=== PATIENT | female | born 1935 | race Caucasian/White ===

== ENCOUNTER 2016-07-05 07:06 | Observation (INO) | payer MEDICARE, BC ==
[2016-07-05] VITALS (14 sets, daily range): BP systolic 156–203; BP diastolic 65–88; PULSE 52–73; RESP 18–20; TEMP 97.7–98.7; O2SAT 95–98
[~2016-07-05 07:06] MED LIST: ALLO100T PO; ALPR0.25 PO; CALC0.5C6 PO; CALC500 PO; CALC500T30 PO; CART240C4 PO; CEFU1TAB43 PO; FURO20 PO; INDA1.25 PO; LACT PO; MAGN400 PO; MVI PO; VITA400D PO
--- NOTE | 2016-07-05 07:28 | PD ---
HPI Chief Complaint: Chest Pain Time Seen by Provider: 07:17 Travel History International Travel<30 days: No Contact w/Intl Traveler<30days: No Traveled to known affect area: No History of Present Illness HPI Patient is a 81-year-old female who presents to emergency room with complaints of chest pain. Patient reports that she woke up around 4 AM this morning with left-sided chest pain. Patient reports that she really can't describe her chest pain, reports that it just feels like "pain" in my chest. Patient reports that it feels like "funny feeling in her chest that just doesn't feel right." Patient reports that her chest pain had been ongoing since 4 AM and continued until arrival in the emergency room. Patient reports that chest pain did radiate to her left shoulder. Denies diaphoresis, nausea vomiting or palpitations or chest pain. Reports that she has not had these symptoms in the past. Denies history of IA or history of cardiac stent in the past. Patient currently chest pain-free at this time. Patient denies shortness of breath. Patient does admit to lifting heavy objects yesterday, including boxes and a heavy rug, reports that her pain is not reproducible at this time. Patient reports that hyperventilating makes her symptoms worse, reports that if she doesn't think her chest pain, this makes her symptoms feel better. Patient did take a baby aspirin prior to coming to the emergency room today. PFSH Past Medical History Arthritis: Yes (knees and hips) Asthma: No Blood Disorders: No Anxiety: Yes Depression: No Heart Rhythm Problems: No Cancer: No Cardiovascular Problems: Yes High Cholesterol: No Chest Pain: No Congestive Heart Failure: No COPD: No Cerebrovascular Accident: No Diminished Hearing: No Gastrointestinal Disorders: No GERD: Yes (OCCASIONAL) Genitourinary: No Headaches: No Hiatal Hernia: No Hypertension: Yes (TAKES BP MEDS) Immune Disorder: No Implanted Vascular Access Dvce: No Musculoskeletal: Yes Neurologic: No Psychiatric: No Reproductive: No Respiratory: No Migraines: No Seizures: No Sleep Apnea: No Thyroid Disease: Yes (HYPERPARATHYROIDISM) Ulcer: No Influenza Vaccination: No ?: Not Menopausal: Yes Past Surgical History Abdominal Surgery: No Cardiac Surgery: No Ear Surgery: No Endocrine Surgery: Yes (PARATHYROID SURGERY 1999) Eye Surgery: No Genitourinary Surgery: No Gynecologic Surgery: Yes (TUBAL, HYSTERECTOMY) Hysterectomy: Yes Neurologic Surgery: No Oral Surgery: Yes (tonsillectomy) Pacemaker: No Thoracic Surgery: No Tonsillectomy: Yes (childhood) Family History Family History: Negative Social History Alcohol Use: No Tobacco Use: No Substance Use: No Allergies-Medications (Allergen,Severity, Reaction): Coded Allergies: Codeine (Verified Allergy, Severe, "CRAZY", 07/05/16) Procaine (Verified Allergy, Severe, NAUSEA, 07/05/16) Reported Meds & Prescriptions Reported Meds & Active Scripts Active Reported Aspir-Low (Aspirin) 81 Mg Tabdr 81 Mg PO DAILY Vitamin D (Cholecalciferol) 400 Unit Cap 400 Mg PO DAILY Magnesium Oxide 400 Mg Tab 400 Mg PO DAILY Indapamide 1.25 Mg Tab 1.25 Mg PO DAILY Lasix (Furosemide) 20 Mg Tab 20 Mg PO DAILY Cartia Xt (Diltiazem ER 24 HR) 240 Mg Caper 240 Mg PO HS Calcium 500 Mg Tab 500 Mg PO BID Calcitriol 0.5 Mcg Cap 0.5 Mcg PO DAILY Alprazolam 0.25 Mg Tab 0.25 Mg PO HS PRN Allopurinol 100 Mg Tab 100 Mg PO BID Review of Systems General / Constitutional: No: Fever Eyes: No: Visual changes HENT: No: Headaches Cardiovascular: Positive: Chest Pain or Discomfort Respiratory: No: Shortness of Breath Gastrointestinal: No: Abdominal Pain Genitourinary: No: Dysuria Musculoskeletal: No: Pain Skin: No Rash Neurologic: No: Weakness Psychiatric: No: Depression Endocrine: No: Polydipsia Hematologic/Lymphatic: No: Easy Bruising Physical Exam Narrative GENERAL: No acute distress, nontoxic SKIN: Warm and dry. HEAD: Atraumatic. Normocephalic. EYES: Pupils equal and round. No scleral icterus. No injection or drainage. ENT: No nasal bleeding or discharge. Mucous membranes pink and moist. NECK: Trachea midline. No JVD. CARDIOVASCULAR: Regular rate and rhythm. No murmur appreciated. RESPIRATORY: No accessory muscle use. Clear to auscultation. Breath sounds equal bilaterally. GASTROINTESTINAL: Abdomen soft, non-tender, nondistended. Hepatic and splenic margins not palpable. MUSCULOSKELETAL: No obvious deformities. No clubbing. No cyanosis. No edema. NEUROLOGICAL: Awake and alert. No obvious cranial nerve deficits. Motor grossly within normal limits. Normal speech. PSYCHIATRIC: Appropriate mood and affect; insight and judgment normal. Data Data Last Documented VS Vital Signs Date Time Temp Pulse Resp B/P Pulse Ox O2 Delivery O2 Flow Rate FiO2 07/05/16 07:46 52 18 170/72 95 Room Air 07/05/16 07:14 97.7 Orders B-Type Natriuretic Peptide (07/05/16 07:22) Ckmb (Isoenzyme) Profile (07/05/16 07:22) Complete Blood Count With Diff (07/05/16 07:22) Comprehensive Metabolic Panel (07/05/16 07:22) Prothrombin Time / Inr (Pt) (07/05/16 07:22) Act Partial Throm Time (Ptt) (07/05/16 07:22) Troponin I (07/05/16 07:22) Chest, Single Ap (07/05/16 07:22) Ecg Monitoring (07/05/16 07:22) Iv Access Insert/Monitor (07/05/16 07:22) Oximetry (07/05/16 07:22) Nitroglycerin 2% Oint (Nitroglycerin 2% (07/05/16 07:30) Sodium Chloride 0.9% Flush (Ns Flush) (07/05/16 07:30) Labs Laboratory Tests Test 07/05/16 07:15 White Blood Count 7.5 TH/MM3 Red Blood Count 4.05 MIL/MM3 Hemoglobin 12.9 GM/DL Hematocrit 37.5 % Mean Corpuscular Volume 92.5 FL Mean Corpuscular Hemoglobin 31.8 PG Mean Corpuscular Hemoglobin 34.4 % Concent Red Cell Distribution Width 12.8 % Platelet Count 214 TH/MM3 Mean Platelet Volume 8.4 FL Neutrophils (%) (Auto) 77.2 % Lymphocytes (%) (Auto) 17.2 % Monocytes (%) (Auto) 3.5 % Eosinophils (%) (Auto) 1.5 % Basophils (%) (Auto) 0.6 % Neutrophils # (Auto) 5.8 TH/MM3 Lymphocytes # (Auto) 1.3 TH/MM3 Monocytes # (Auto) 0.3 TH/MM3 Eosinophils # (Auto) 0.1 TH/MM3 Basophils # (Auto) 0.0 TH/MM3 CBC Comment DIFF FINAL Differential Comment Prothrombin Time 10.7 SEC Prothromb Time International 1.0 RATIO Ratio Activated Partial 24.7 SEC Thromboplast Time Sodium Level 141 MEQ/L Potassium Level 3.7 MEQ/L Chloride Level 102 MEQ/L Carbon Dioxide Level 28.3 MEQ/L Anion Gap 11 MEQ/L Blood Urea Nitrogen 29 MG/DL Creatinine 1.90 MG/DL Estimat Glomerular Filtration 25 ML/MIN Rate Random Glucose 158 MG/DL Calcium Level 11.3 MG/DL Total Bilirubin 0.5 MG/DL Aspartate Amino Transf 17 U/L (AST/SGOT) Alanine Aminotransferase 29 U/L (ALT/SGPT) Alkaline Phosphatase 120 U/L Total Creatine Kinase 74 U/L Troponin I LESS THAN 0.02 NG/ML B-Type Natriuretic Peptide 26 PG/ML Total Protein 7.6 GM/DL Albumin 4.0 GM/DL [facility] Medical Decision Making Medical Screen Exam Complete: Yes Emergency Medical Condition: Yes Interpretation(s) EKG at 0704: Normal sinus rhythm at 63 bpm, QT/QTc 438/443, nonspecific T-wave changes Vital Signs Date Time Temp Pulse Resp B/P Pulse Ox O2 Delivery O2 Flow Rate FiO2 07/05/16 07:19 64 18 07/05/16 07:14 97.7 64 20 199/83 96 Laboratory Tests Test 07/05/16 07:15 White Blood Count 7.5 TH/MM3 (4.0-11.0) Red Blood Count 4.05 MIL/MM3 (4.00-5.30) Hemoglobin 12.9 GM/DL (11.6-15.3) Hematocrit 37.5 % (35.0-46.0) Mean Corpuscular Volume 92.5 FL (80.0-100.0) Mean Corpuscular Hemoglobin 31.8 PG (27.0-34.0) Mean Corpuscular Hemoglobin 34.4 % Concent (32.0-36.0) Red Cell Distribution Width 12.8 % (11.6-17.2) Platelet Count 214 TH/MM3 (150-450) Mean Platelet Volume 8.4 FL (7.0-11.0) Neutrophils (%) (Auto) 77.2 % (16.0-70.0) Lymphocytes (%) (Auto) 17.2 % (9.0-44.0) Monocytes (%) (Auto) 3.5 % (0.0-8.0) Eosinophils (%) (Auto) 1.5 % (0.0-4.0) Basophils (%) (Auto) 0.6 % (0.0-2.0) Neutrophils # (Auto) 5.8 TH/MM3 (1.8-7.7) Lymphocytes # (Auto) 1.3 TH/MM3 (1.0-4.8) Monocytes # (Auto) 0.3 TH/MM3 (0-0.9) Eosinophils # (Auto) 0.1 TH/MM3 (0-0.4) Basophils # (Auto) 0.0 TH/MM3 (0-0.2) CBC Comment DIFF FINAL Differential Comment Prothrombin Time 10.7 SEC (9.8-11.6) Prothromb Time International 1.0 RATIO Ratio Activated Partial 24.7 SEC Thromboplast Time (24.3-30.1) Sodium Level 141 MEQ/L (136-145) Potassium Level 3.7 MEQ/L (3.5-5.1) Chloride Level 102 MEQ/L (98-107) Carbon Dioxide Level 28.3 MEQ/L (21.0-32.0) Anion Gap 11 MEQ/L (5-15) Blood Urea Nitrogen 29 MG/DL (7-18) Creatinine 1.90 MG/DL (0.50-1.00) Estimat Glomerular Filtration 25 ML/MIN (>89) Rate Random Glucose 158 MG/DL (74-106) Calcium Level 11.3 MG/DL (8.5-10.1) Total Bilirubin 0.5 MG/DL (0.2-1.0) Aspartate Amino Transf 17 U/L (15-37) (AST/SGOT) Alanine Aminotransferase 29 U/L (10-53) (ALT/SGPT) Alkaline Phosphatase 120 U/L (45-117) Total Creatine Kinase 74 U/L (26-192) Troponin I LESS THAN 0.02 NG/ML (0.02-0.05) B-Type Natriuretic Peptide 26 PG/ML (0-100) Total Protein 7.6 GM/DL (6.4-8.2) Albumin 4.0 GM/DL (3.4-5.0) Differential Diagnosis ACS, electrolyte abnormality, arrhythmia, musculoskeletal chest pain, pneumothorax, pneumonia Narrative Course Patient is an 81-year-old female who presents to emergency room with complaints of chest pain. Patient with onset of chest pain and one 4 AM this morning. Patient reports that she has complete relief of chest pain at this time. Patient was placed on quality assurance monitor body as well as continuous pulse oximetry upon arrival to ER. EKG obtained, patient and normal sinus rhythm with no acute ST segment changes X-ray, CBC, BMP, cardiac enzymes ordered for further evaluation symptoms. Will Apply Nitropaste at this time as patient is chest pain-free. Reviewed labs and studies with patient in detail. Discussed with patient that symptoms may be musculoskeletal in nature as she does have reproducible left arm pain, chest pain is not reproducible. Discussed with her need for obs for chest pain rule out, patient agreeable Physician Communication Physician Communication case reviewed with dr randall who accepts pt to cdu Diagnosis Primary Impression: Chest pain Qualified Code: R07.9 - Chest pain, unspecified type Admitting Information Admitting Physician Requests: Bonny Philip DO Jul 05, 2016 07:28
[2016-07-05] MEDS ORDERED: NITROGLYCERIN 2% OINT 1 GM PACKET TOP ONE (07:30)
[2016-07-05] MEDS ORDERED: SODIUM CHLORIDE 0.9% FLUSH 5 ML FLUSH IVF PRN ×2 (07:30→09:15)
[2016-07-05 07:34] LABS: AUTOMATED NEUTROPHIL # 5.8 TH/MM3 (1.8-7.7); BASOPHIL % 0.6 % (0.0-2.0); EOSINOPHIL # 0.1 TH/MM3 (0-0.4); EOSINOPHIL % 1.5 % (0.0-4.0); HEMATOCRIT 37.5 % (35.0-46.0); LYMPH % 17.2 % (9.0-44.0); LYMPHOCYTE # 1.3 TH/MM3 (1.0-4.8); MEAN CELL VOLUME 92.5 FL (80.0-100.0); MEAN CORPUSCULAR HEMOGLOBIN 31.8 PG (27.0-34.0); MEAN CORPUSCULAR HGB CONC 34.4 % (32.0-36.0); MONO % 3.5 % (0.0-8.0); NEUT % 77.2 % (16.0-70.0); PLATELET COUNT 214 TH/MM3 (150-450); RED BLOOD COUNT 4.05 MIL/MM3 (4.00-5.30); RED CELL DISTRIBUTION WIDTH 12.8 % (11.6-17.2); WHITE BLOOD COUNT 7.5 TH/MM3 (4.0-11.0)
[2016-07-05 07:36] LABS: HEMO FLAGS DIFF FINAL
[2016-07-05 07:43] LABS: CHLORIDE 102 MEQ/L (98-107); POTASSIUM 3.7 MEQ/L (3.5-5.1); SODIUM (NA) 141 MEQ/L (136-145)
[2016-07-05 07:46] LABS: ANION GAP 11 MEQ/L (5-15); BICARBONATE 28.3 MEQ/L (21.0-32.0)
[2016-07-05 07:47] LABS: APTT (PATIENT) 24.7 SEC (24.3-30.1); BLOOD UREA NITROGEN 29 MG/DL (7-18); PROTHROMBIN TIME - PATIENT 10.7 SEC (9.8-11.6)
[2016-07-05 07:50] LABS: ALT (GPT) 29 U/L (10-53); AST (GOT) 17 U/L (15-37); GLOMERULAR FILTRATION RATE 25 ML/MIN (>89)
[2016-07-05 07:51] LABS: TOTAL BILIRUBIN ADULT 0.5 MG/DL (0.2-1.0)
[2016-07-05 07:52] LABS: ALKALINE PHOSPHATASE 120 U/L (45-117)
[2016-07-05] MEDS ORDERED: ALLO100T PO (07:54)
[2016-07-05] MEDS ORDERED: MAGN400T2 PO (07:54)
[2016-07-05] MEDS ORDERED: VITA400C28 PO (07:54)
[2016-07-05] MEDS ORDERED: CART240C PO (07:54)
[2016-07-05] MEDS ORDERED: CALC0.5C6 PO (07:54)
[2016-07-05] MEDS ORDERED: INDA1.25 PO (07:54)
[2016-07-05] MEDS ORDERED: FURO1TAB62 PO (07:54)
[2016-07-05] MEDS ORDERED: ALPR0.25 PO (07:54)
[2016-07-05] MEDS ORDERED: CALC500T42 PO (07:54)
[2016-07-05] MEDS ORDERED: ASPI81TA19 PO (07:55)
--- NOTE | 2016-07-05 07:56 | RADHPO ---
EXAM DATE/TIME: 07/05/2016 07:38 [facility] COMPARISON: CHEST SINGLE AP, January 27, 2016, 11:04. INDICATIONS : Left chest pain radiating to shoulder. MEDICAL HISTORY : Hypertension. Gastroesophageal reflux disease. Pancreatitis. SURGICAL HISTORY : None. ENCOUNTER: Initial ACUITY: 1 day PAIN SCORE: 6/10 LOCATION: Left chest FINDINGS: A single view of the chest demonstrates the lungs to be symmetrically aerated without evidence of mas s, infiltrate or effusion. The cardiomediastinal contours are unremarkable. Osseous structures are intact. CONCLUSION: No acute disease. Ochoa Garcia MD on July 05, 2016 at 7:55 Board Certified Radiologist. This report was verified electronically.
[2016-07-05 07:58] LABS: CREATINE KINASE 74 U/L (26-192)
--- NOTE | 2016-07-05 09:00 | HHI.HP ---
cc: Silas Batres MD [facility] Service [facility] Primary Care Physician Silas Batres MD Admission Diagnosis chest pain Diagnoses: (1) Chest pain Diagnosis: Principal (2) Acute kidney injury superimposed on chronic kidney disease Diagnosis: Principal Travel History International Travel<30 Days: No Contact w/Intl Traveler <30 Da: No Traveled to Known Affected Are: No History of Present Illness 81-year-old female with history of hypertension and hyperparathyroidism presents with complaint of chest pain. Pain started at 4: 30 AM and lasted until 7 AM this morning, describes it as dull. She states she additionally had pain in her left shoulder. She took 162 mg of aspirin at home. She still has pain in the left upper arm but the chest pain has resolved. Denies radiation elsewhere. She rates the pain at the time of onset a 3/10. Patient has been physically moving things recently out of the house. The patient denies any diaphoresis, neck pain, numbness or tingling in the left arm, shortness of breath, abdominal pain, nausea, or vomiting. Denies any fevers or cough. Denies any diarrhea or constipation. Patient denies any history of arrhythmias including A. fib. Denies history of diabetes, hyperlipidemia, MIs or CVAs. Review of Systems Other ROS 10 negative unless otherwise indicated in history of present illness. Past Family Social History Past Medical History Hypertension Hyperparathyroidism EMR also indicates history of arthritis and GERD. Past Surgical History Parathyroid surgery Tubal ligation Hysterectomy Tonsillectomy Reported Medications Aspir-Low (Aspirin) 81 Mg Tabdr 81 Mg PO DAILY Vitamin D (Cholecalciferol) 400 Unit Cap 400 Mg PO DAILY Magnesium Oxide 400 Mg Tab 400 Mg PO DAILY Indapamide 1.25 Mg Tab 1.25 Mg PO DAILY Lasix (Furosemide) 20 Mg Tab 20 Mg PO DAILY Cartia Xt (Diltiazem ER 24 HR) 240 Mg Caper 240 Mg PO HS Calcium 500 Mg Tab 500 Mg PO BID Calcitriol 0.5 Mcg Cap 0.5 Mcg PO DAILY Alprazolam 0.25 Mg Tab 0.25 Mg PO HS PRN Allopurinol 100 Mg Tab 100 Mg PO BID Allergies: Coded Allergies: Codeine (Verified Allergy, Severe, "CRAZY", 07/05/16) Procaine (Verified Allergy, Severe, NAUSEA, 07/05/16) Family History Father: at age 87 of heart problems. Mother: Hepatitis C from a blood transfusion. Social History Denies any history of cigarette smoking. Denies alcohol use. Denies illicit drug use. Physical Exam Vital Signs Vital Signs Date Time Temp Pulse Resp B/P Pulse Ox O2 Delivery O2 Flow Rate FiO2 07/05/16 07:46 52 18 170/72 95 Room Air 07/05/16 07:19 64 18 07/05/16 07:14 97.7 64 20 199/83 96 Physical Exam GENERAL: This is an elderly pleasant well-nourished, well-developed patient, in no apparent distress. SKIN: No rashes, ecchymoses or lesions. Cool and dry. HEAD: Atraumatic. Normocephalic. EYES: Pupils equal round. No scleral icterus. No injection or drainage. ENT: MMM. Airway patent. NECK: Trachea midline. CARDIOVASCULAR: HR 59. Regular rhythm. RESPIRATORY: Clear to auscultation. Breath sounds equal bilaterally. No wheezes , rales, or rhonchi. GASTROINTESTINAL: Abdomen soft, non-tender, nondistended. MUSCULOSKELETAL: No lower extremity edema bilaterally. NEUROLOGICAL: Awake and alert. Motor grossly within normal limits. Normal speech. Laboratory Laboratory Tests Test 07/05/16 07:15 White Blood Count 7.5 Red Blood Count 4.05 Hemoglobin 12.9 Hematocrit 37.5 Mean Corpuscular Volume 92.5 Mean Corpuscular Hemoglobin 31.8 Mean Corpuscular Hemoglobin 34.4 Concent Red Cell Distribution Width 12.8 Platelet Count 214 Mean Platelet Volume 8.4 Neutrophils (%) (Auto) 77.2 Lymphocytes (%) (Auto) 17.2 Monocytes (%) (Auto) 3.5 Eosinophils (%) (Auto) 1.5 Basophils (%) (Auto) 0.6 Neutrophils # (Auto) 5.8 Lymphocytes # (Auto) 1.3 Monocytes # (Auto) 0.3 Eosinophils # (Auto) 0.1 Basophils # (Auto) 0.0 CBC Comment DIFF FINAL Differential Comment Prothrombin Time 10.7 Prothromb Time International 1.0 Ratio Activated Partial 24.7 Thromboplast Time Sodium Level 141 Potassium Level 3.7 Chloride Level 102 Carbon Dioxide Level 28.3 Anion Gap 11 Blood Urea Nitrogen 29 Creatinine 1.90 Estimat Glomerular Filtration 25 Rate Random Glucose 158 Calcium Level 11.3 Total Bilirubin 0.5 Aspartate Amino Transf 17 (AST/SGOT) Alanine Aminotransferase 29 (ALT/SGPT) Alkaline Phosphatase 120 Total Creatine Kinase 74 Troponin I LESS THAN 0.02 B-Type Natriuretic Peptide 26 Total Protein 7.6 Albumin 4.0 Result Diagram: 07/05/16 0715 07/05/16714 Imaging Last Impressions Chest X-Ray 07/05/16721 Signed Impressions: Service Date/Time: Tuesday, July 05, 2016 07:38 - CONCLUSION: No acute disease. Ochoa Garcia MD Assessment and Plan Assessment and Plan 81-year-old female with: Chest pain: Atypical as chest pain was dull and lasted for 2.5 hours. Patient additionally has pain in her left shoulder, but has been lifting legs recently. Troponin less than 0.02. EKG #1 personally interpreted with sinus rhythm and no evidence of ischemia. Chest x-ray personally reviewed without acute abnormality. BNP normal. No lower extremity edema on exam. -Continue home 81 mg daily aspirin -Nitroglycerin/Tylenol for pain (patient has adverse reaction to codeine) -Serial EKGs and enzymes. -Provided ACS is ruled out, will order nuclear stress test this afternoon. Keep NPO SONIA on CKD: BUN/Cr 29/1.9 with GFR of 25. Labs from 02/03/16 with GFR 58 and normal BUN and creatinine. -Hydrate with IV NS @ 100 mL/hr -Monitor BMP HTN: BP 199/83 on arrival-->164/81 -Resume home diltiazem. Hold Lasix for now due to SONIA. -Clonidine prn SBP >160 DVT prevention: TEDs/SCDs. Chronic medical problems include hyperparathyroidism. Continue home medication. Written by Ivory Avina PA-C acting as scribe for Dr. Issa on 07/05/16 at ~ 0850 The documentation accurately reflects the work and decisions performed face-to- face by me Dr. Issa on 07/05/16 at 0850. Discussed Condition With ED physician Problem Qualifiers (1) Chest pain: Qualified Code: R07.9 - Chest pain, unspecified type Ivory Avina Jul 05, 2016 09:00
[2016-07-05] MEDS ORDERED: ACETAMINOPHEN 500 MG CPLT PO PRN (09:15)
[2016-07-05] MEDS ORDERED: NITROGLYCERIN 0.4 MG SL 25 TABS/BTL SL PRN (09:15)
[2016-07-05] MEDS ORDERED: ONDANSETRON HCL 4 MG/2 ML VIAL IV PRN (09:15)
[2016-07-05] MEDS ORDERED: SODIUM CHLOR 0.9% 1000 ML INJ 1,000 ML IV SCH (10:00)
[2016-07-05] MEDS ORDERED: CALCITRIOL 0.25 MCG CAP PO SCH (10:30)
[2016-07-05] MEDS ORDERED: ALPRAZolam 0.25 MG TAB PO PRN (10:30)
[2016-07-05 10:56] LABS: CREATINE KINASE 56 U/L (26-192)
[2016-07-05] MEDS ORDERED: CHOLECALCIFEROL (VIT D3) 400 UNIT TAB PO SCH (12:00)
[2016-07-05] MEDS ORDERED: INDAPAMIDE 2.5 MG TAB PO SCH (12:00)
[2016-07-05 13:38] LABS: MAGNESIUM 2.3 MG/DL (1.5-2.5)
[2016-07-05 14:14] LABS: CREATINE KINASE 49 U/L (26-192)
[2016-07-05] MEDS ORDERED: hydrALAZINE HCL 20 MG/ML VIAL IV PUSH PRN (14:45)
[2016-07-05] MEDS ORDERED: cloNIDine HCL 0.1 MG TAB PO PRN (15:15)
[2016-07-05] MEDS ORDERED: REGADENOSON INJ 0.4 MG/5 ML SYR IV ONE (17:07)
--- NOTE | 2016-07-05 18:52 | RADHPO ---
EXAM DATE/TIME: 07/05/2016 17:26 [facility] COMPARISON: No previous studies available for comparison. INDICATIONS : Left chest pain radiating to left shoulder. Angina. DOSE: 26.7 mCi Tc99m Myoview at stress. 8.8 mCi Tc99m Myoview at rest. 0.4 mg Lexiscan STRESS SYMPTOMS: Dyspnea. EJECTION FRACTION: > 70% MEDICAL HISTORY : Hypertension. Gastroesophageal reflux disease. SURGICAL HISTORY : Hysterectomy. Tonsillectomy. ENCOUNTER: Initial ACUITY: 1 day PAIN SCALE: 6/10 LOCATION: Left chest TECHNIQUE: The patient underwent pharmacologic stress with infusion of prescribed dose. Continuous ECG tracing was monitored during stress. Gated SPECT imaging was performed after stress and conventional SPECT i maging was performed at rest. The examination was performed on a SPECT/CT scanner, both attenuation and non-corrected datasets were reviewed. FINDINGS: DISTRIBUTION: The maximum perfused segment at stress is in the anterior wall. PERFUSION STUDY: The pattern of perfusion at stress is within normal limits. GATED STUDY: There is intact wall motion and thickening without hypokinetic or dyskinetic segments. CONCLUSION: Normal study. No stress-induced ischemia or other abnormality. RISK CATEGORY: Low Kalpesh Amaya MD on July 05, 2016 at 18:50 Board Certified Radiologist. This report was verified electronically.
[2016-07-05] MEDS ORDERED: DILTIAZEM-CD 240 MG CAP ER PO SCH (21:00)
[2016-07-05] MEDS ORDERED: SODIUM CHLORIDE 0.9% FLUSH 5 ML FLUSH IVF SCH (21:00)
[2016-07-06] MEDS ORDERED: ASPIRIN EC 81 MG TABEC PO SCH (09:00)
[2016-07-06] MEDS ORDERED: CALCITRIOL 0.25 MCG CAP PO SCH (09:00)
[2016-07-06] MEDS ORDERED: INFLUENZA VIRUS VACCINE (QUADRIVALENT) 0.5 ML SYR IM ONE (10:00)
--- NOTE | 2016-07-06 17:34 | EKG ---
Date Performed: 07/05/2016 Time Performed: 07:04:58 PTAGE: 81 years EKG: Possible ectopic atrial rhythm Lateral T wave changes are nonspecific When compared to prev ious tracing, the patient is no longer in Atrial fibrillation. Borderline ECG PREVIOUS TRACING : 01/26/2016 06.10 DOCTOR: Talita Garcia Interpretating Date/Time 07/06/2016 17:32:37
--- NOTE | 2016-07-06 17:34 | EKG ---
Date Performed: 07/05/2016 Time Performed: 09:56:28 PTAGE: 81 years EKG: Sinus rhythm Lateral T wave changes are nonspecific Since previous tracing, no significant change noted Borderlin e ECG PREVIOUS TRACING : 07/05/2016 07.04 DOCTOR: Talita Garcia Interpretating Date/Time 07/06/2016 17:32:59
--- NOTE | 2016-07-06 17:35 | EKG ---
Date Performed: 07/05/2016 Time Performed: 12:52:14 PTAGE: 81 years EKG: Sinus rhythm Lateral T wave changes are nonspecific Since previous tracing, no significant change noted Borderlin e ECG PREVIOUS TRACING : 07/05/2016 09.56 DOCTOR: Talita Garcia Interpretating Date/Time 07/06/2016 17:33:08
--- NOTE | 2016-07-07 09:14 | TR ---
Date Performed: 07/05/2016 Time Performed: 17:41:25 DOCTOR: Talita Garcia DRUG LIST: CLINICAL HISTORY: REASON FOR TEST: Chest pain. REASON FOR ENDING: OBSERVATION: CONCLUSION: Lexiscan stress test was performed under standard four minute protocol. Radionuclid e was injected one minute prior to ending the test. No electrocardiographic abormalities were present to suggest ischemia. Nuclear imaging and interpretation are pending. COMMENTS:
== END 2016-07-05 21:48 | disposition left against medical advice (07) ==
LOC: PHED 07:06 → PHEDA 08:45 → PHEDH 13:22
PROVIDERS: ADMIT Family Medicine; ATTEND Family Medicine
DX: R07.9 Chest pain, unspecified (principal); N17.9 Acute kidney failure, unspecified; I12.9 Hypertensive chronic kidney disease with stage 1 through stage 4 chronic kidney disease, or unspecified chronic kidney disease; N18.9 Chronic kidney disease, unspecified; M19.90 Unspecified osteoarthritis, unspecified site; K21.9 Gastro-esophageal reflux disease without esophagitis; X50.0XXA Overexertion from strenuous movement or load, initial encounter; I48.91 Unspecified atrial fibrillation
CPT/HCPCS: 71010; 78452; 80053; 82550; 83735; 83880; 84484; 85025; 85610; 85730; 93005; 93017; 99285; A9502; G0378; J0360; J2785; J7030

== ENCOUNTER → 2016-09-11 | Outpatient (CLI) | payer MEDICARE, BC ==
[~2016-09-11] MED LIST changes: +ASPI81TA19 PO; +CALC0.25 PO; -CALC500 PO; -CALC500T30 PO; +CALC500T42 PO; +CART240C PO; -CART240C4 PO; -CEFU1TAB43 PO; +FURO1TAB62 PO; -FURO20 PO; -LACT PO; -MAGN400 PO; +MAGN400T2 PO; -MVI PO; +VITA400C28 PO; -VITA400D PO
== END ==
LOC: PLAB 07:37
DX: E89.2 Postprocedural hypoparathyroidism (principal); E83.51 Hypocalcemia; E04.2 Nontoxic multinodular goiter; E27.5 Adrenomedullary hyperfunction
CPT/HCPCS: 36415; 82306; 82310; 83970; 84439; 84443

== ENCOUNTER → 2016-10-27 | Outpatient (CLI) | payer MEDICARE, BC ==
[2016-10-27 13:17] LABS: AUTOMATED NEUTROPHIL # 5.8 TH/MM3 (1.8-7.7); BASOPHIL % 0.5 % (0.0-2.0); EOSINOPHIL # 0.1 TH/MM3 (0-0.4); EOSINOPHIL % 1.7 % (0.0-4.0); HEMATOCRIT 34.9 % (35.0-46.0); HEMO FLAGS DIFF FINAL; LYMPH % 17.3 % (9.0-44.0); LYMPHOCYTE # 1.3 TH/MM3 (1.0-4.8); MEAN CORPUSCULAR HEMOGLOBIN 32.7 PG (27.0-34.0); MEAN CORPUSCULAR HGB CONC 35.1 % (32.0-36.0); MONO % 5.5 % (0.0-8.0); PLATELET COUNT 236 TH/MM3 (150-450); RED BLOOD COUNT 3.75 MIL/MM3 (4.00-5.30); RED CELL DISTRIBUTION WIDTH 13.6 % (11.6-17.2); WHITE BLOOD COUNT 7.8 TH/MM3 (4.0-11.0)
[2016-10-27 13:34] LABS: BACTERIA, URINE RARE /hpf; BLOOD, URINE NEG (NEG); GLUCOSE,URINE NEG (NEG); KETONE, URINE NEG (NEG); MUCUS URINE FEW /lpf (OCC); NITRITE,URINE NEG (NEG); SQUAMOUS EPITHELIAL CELL URINE 3 /hpf (0-5); URINE COLOR YELLOW (YELLW/STRAW)
[2016-10-27 14:07] LABS: ALKALINE PHOSPHATASE 119 U/L (45-117); ALT (GPT) 39 U/L (10-53); ANION GAP 9 MEQ/L (5-15); AST (GOT) 24 U/L (15-37); BICARBONATE 32.2 MEQ/L (21.0-32.0); BLOOD UREA NITROGEN 50 MG/DL (7-18); CHLORIDE 98 MEQ/L (98-107); GLOMERULAR FILTRATION RATE 17 ML/MIN (>89); GLUCOSE,FASTING 122 MG/DL (74-99); POTASSIUM 4.8 MEQ/L (3.5-5.1); SODIUM (NA) 139 MEQ/L (136-145); TOTAL BILIRUBIN ADULT 0.4 MG/DL (0.2-1.0)
[2016-10-27 14:27] LABS: CALCIUM-PROTEIN CORRECTED 14.2 MG/DL (8.5-10.1)
[2016-10-27 16:20] LABS: HEMOGLOBIN A1a 1.2 %; HEMOGLOBIN A1b 1.9 %; HEMOGLOBIN Ao 83.8 %; HEMOGLOBIN LA1C 2.2 %; HEMOGLOBIN P3 5.5 %
== END ==
LOC: PLAB 10:35
PROVIDERS: ATTEND Family Medicine
DX: E11.9 Type 2 diabetes mellitus without complications (principal); R53.83 Other fatigue; I10 Essential (primary) hypertension; R63.4 Abnormal weight loss
CPT/HCPCS: 36415; 80053; 81001; 82043; 83036; 85025

== ENCOUNTER → 2016-11-18 | Outpatient (CLI) | payer MEDICARE, BC ==
[2016-11-18 15:44] LABS: AUTOMATED NEUTROPHIL # 5.5 TH/MM3 (1.8-7.7); BASOPHIL % 0.3 % (0.0-2.0); EOSINOPHIL # 0.1 TH/MM3 (0-0.4); EOSINOPHIL % 0.7 % (0.0-4.0); HEMATOCRIT 33.8 % (35.0-46.0); HEMO FLAGS DIFF FINAL; LYMPH % 14.8 % (9.0-44.0); LYMPHOCYTE # 1.1 TH/MM3 (1.0-4.8); MEAN CELL VOLUME 92.6 FL (80.0-100.0); MEAN CORPUSCULAR HEMOGLOBIN 32.4 PG (27.0-34.0); MONO % 6.4 % (0.0-8.0); NEUT % 77.8 % (16.0-70.0); PLATELET COUNT 265 TH/MM3 (150-450); RED BLOOD COUNT 3.65 MIL/MM3 (4.00-5.30); RED CELL DISTRIBUTION WIDTH 13.8 % (11.6-17.2); WHITE BLOOD COUNT 7.1 TH/MM3 (4.0-11.0)
[2016-11-18 15:58] LABS: BICARBONATE 31.6 MEQ/L (21.0-32.0); POTASSIUM 3.6 MEQ/L (3.5-5.1)
[2016-11-18 16:11] LABS: TOTAL PROTEIN SPE 7.4 GM/DL (6.0-7.6)
[2016-11-18 16:17] LABS: BLOOD, URINE TRACE (NEG); GLUCOSE,URINE NEG (NEG); HYALINE CAST, URINE 5 /lpf (RARE); KETONE, URINE NEG (NEG); NITRITE,URINE NEG (NEG); PH, URINE 6.5 (5.0-8.5); SQUAMOUS EPITHELIAL CELL URINE 2 /hpf (0-5); TRANSITIONAL EPI CELLS, URINE <1 /hpf; URINE COLOR LIGHT-YELLOW (YELLW/STRAW)
[2016-11-18 16:19] LABS: URINE TOTAL PROTEIN TIMED 45.6 MG/DL
[2016-11-19 07:46] LABS: KAPPA LAMBDA RATIO 1.68 (1.57-3.93)
[2016-11-19 09:19] LABS: ALBUMIN SPE 4.8 GM/DL (3.50-5.00); ALPHA 1 GLOBULIN 0.22 GM/DL (0.11-0.29); ALPHA 2 GLOBULIN 0.84 GM/DL (0.22-1.00); BETA GLOBULINS (SPE) 0.87 GM/DL (0.53-1.03)
[2016-11-23 17:53] LABS: MYELOPEROXIDASE LESS THAN 1.0 AI (<1.0); PROTEINASE-3 LESS THAN 1.0 AI (<1.0)
[2016-11-25 03:51] LABS: KAPPA/LAMBDA FREE 2.14 (0.26-1.65)
== END ==
LOC: PLAB 13:22
PROVIDERS: ATTEND Internal Medicine Nephrology
DX: N17.9 Acute kidney failure, unspecified (principal); N18.3 Chronic kidney disease, stage 3 (moderate); E83.52 Hypercalcemia
CPT/HCPCS: 36415; 80069; 81001; 82306; 82570; 82652; 82784; 83883; 83930; 83935; 83970; 84155; 84156; 84165; 85025; 86021; 86038; 86160; 86162; 86334; 86335

== ENCOUNTER 2016-11-20 14:46 | Inpatient (IN) | payer MEDICARE, BC ==
[~2016-11-20] VITALS: Ht 160 cm; Wt 71.2 kg
[~2016-11-20 14:46] MED LIST changes: -CALC0.25 PO
[2016-11-20 14:48] VITALS: BP 158/83; PULSE 76; RESP 15; TEMP 97.7; O2SAT 98
--- NOTE | 2016-11-20 15:11 | PD ---
HPI Chief Complaint: Abnormal Results Time Seen by Provider: 15:00 Travel History International Travel<30 days: No Contact w/Intl Traveler<30days: No Traveled to known affect area: No History of Present Illness HPI 81-year-old female with history of hyperparathyroidism, hypertension who presents after being sent by extension course coordinator Dr. Walsh for abnormal lab values. The patient reports that she was referred to Dr. Walsh by her primary care physician Dr. Batres, had outpatient lab work done 3 days ago. She received a call today and was told to come here. She does not know specifically why she was sent here. She reports that she feels generally well. She has been somewhat unsteady on her feet over the past few weeks during review of systems but otherwise has no acute complaint. PFSH Past Medical History Arthritis: Yes (knees and hips) Asthma: No Blood Disorders: No Anxiety: Yes Depression: No Heart Rhythm Problems: No Cancer: No Cardiovascular Problems: Yes High Cholesterol: No Chest Pain: No Congestive Heart Failure: No COPD: No Cerebrovascular Accident: No Diminished Hearing: No Gastrointestinal Disorders: No GERD: Yes (OCCASIONAL) Genitourinary: No Headaches: No Hiatal Hernia: No Hypertension: Yes (TAKES BP MEDS) Immune Disorder: No Implanted Vascular Access Dvce: No Musculoskeletal: Yes Neurologic: No Psychiatric: No Reproductive: No Respiratory: No Migraines: No Seizures: No Sleep Apnea: No Thyroid Disease: Yes (HYPERPARATHYROIDISM) Ulcer: No Menopausal: Yes Past Surgical History Abdominal Surgery: No Cardiac Surgery: No Ear Surgery: No Endocrine Surgery: Yes (PARATHYROID SURGERY 1999) Eye Surgery: No Genitourinary Surgery: No Gynecologic Surgery: Yes (TUBAL, HYSTERECTOMY) Hysterectomy: Yes Neurologic Surgery: No Oral Surgery: Yes (tonsillectomy) Pacemaker: No Thoracic Surgery: No Tonsillectomy: Yes (childhood) Social History Alcohol Use: No Tobacco Use: No Substance Use: No Allergies-Medications (Allergen,Severity, Reaction): Coded Allergies: Codeine (Verified Allergy, Severe, "CRAZY", 07/05/16) Procaine (Verified Allergy, Severe, NAUSEA, 07/05/16) Reported Meds & Prescriptions Reported Meds & Active Scripts Active Reported Aspir-Low (Aspirin) 81 Mg Tabdr 81 Mg PO DAILY Vitamin D (Cholecalciferol) 400 Unit Cap 400 Mg PO DAILY Magnesium Oxide 400 Mg Tab 400 Mg PO DAILY Indapamide 1.25 Mg Tab 1.25 Mg PO DAILY Lasix (Furosemide) 20 Mg Tab 20 Mg PO DAILY Cartia Xt (Diltiazem ER 24 HR) 240 Mg Caper 240 Mg PO HS Calcium 500 Mg Tab 500 Mg PO BID Calcitriol 0.5 Mcg Cap 0.5 Mcg PO DAILY Alprazolam 0.25 Mg Tab 0.25 Mg PO HS PRN Allopurinol 100 Mg Tab 100 Mg PO BID Review of Systems Except as stated in HPI: all other systems reviewed are Neg Physical Exam Narrative GENERAL: Pleasant well-developed well-nourished female in no acute distress resting comfortably in hospital bed. SKIN: Warm and dry. HEAD: Atraumatic. Normocephalic. EYES: Pupils equal and round. No scleral icterus. No injection or drainage. ENT: No nasal bleeding or discharge. Mucous membranes pink and moist. NECK: Trachea midline. No JVD. CARDIOVASCULAR: Regular rate and rhythm. No murmur appreciated. RESPIRATORY: No accessory muscle use. Clear to auscultation. Breath sounds equal bilaterally. GASTROINTESTINAL: Abdomen soft, non-tender, nondistended. Hepatic and splenic margins not palpable. MUSCULOSKELETAL: No obvious deformities. No clubbing. No cyanosis. No edema. NEUROLOGICAL: Awake and alert. No obvious cranial nerve deficits. Motor grossly within normal limits. Normal speech. PSYCHIATRIC: Appropriate mood and affect; insight and judgment normal. Data Data Last Documented VS Vital Signs Date Time Temp Pulse Resp B/P Pulse Ox O2 Delivery O2 Flow Rate FiO2 11/20/16 15:33 100 Room Air 11/20/16 14:48 97.7 76 15 158/83 Orders Complete Blood Count With Diff (11/20/16 15:05) Comprehensive Metabolic Panel (11/20/16 15:05) Magnesium (Mg) (11/20/16 15:05) Iv Access Insert/Monitor (11/20/16 15:05) Electrocardiogram (11/20/16 ) Ecg Monitoring (11/20/16 15:05) Sodium Chlor 0.9% 1000 Ml Inj (Ns 1000 M (11/20/16 17:00) Calcitonin [place] Inj (Miacalcin Inj) (11/20/16 18:00) Renal Functional Panel (11/21/16 06:00) Pth Related Peptide (11/20/16 16:07) Admit Order (Ed Use Only) (11/20/16 16:10) Labs Laboratory Tests Test 11/20/16 15:20 White Blood Count 6.7 TH/MM3 Red Blood Count 3.57 MIL/MM3 Hemoglobin 11.4 GM/DL Hematocrit 33.1 % Mean Corpuscular Volume 92.8 FL Mean Corpuscular Hemoglobin 32.1 PG Mean Corpuscular Hemoglobin 34.6 % Concent Red Cell Distribution Width 13.7 % Platelet Count 217 TH/MM3 Mean Platelet Volume 8.8 FL Neutrophils (%) (Auto) 71.0 % Lymphocytes (%) (Auto) 20.5 % Monocytes (%) (Auto) 7.0 % Eosinophils (%) (Auto) 1.2 % Basophils (%) (Auto) 0.3 % Neutrophils # (Auto) 4.7 TH/MM3 Lymphocytes # (Auto) 1.4 TH/MM3 Monocytes # (Auto) 0.5 TH/MM3 Eosinophils # (Auto) 0.1 TH/MM3 Basophils # (Auto) 0.0 TH/MM3 CBC Comment DIFF FINAL Differential Comment Sodium Level 134 MEQ/L Potassium Level 3.3 MEQ/L Chloride Level 95 MEQ/L Carbon Dioxide Level 29.6 MEQ/L Anion Gap 9 MEQ/L Blood Urea Nitrogen 48 MG/DL Creatinine 3.55 MG/DL Estimat Glomerular Filtration 12 ML/MIN Rate Random Glucose 115 MG/DL Calcium Level 12.7 MG/DL Protein Corrected Calcium 12.6 MG/DL Magnesium Level 2.5 MG/DL Total Bilirubin 0.5 MG/DL Aspartate Amino Transf 22 U/L (AST/SGOT) Alanine Aminotransferase 30 U/L (ALT/SGPT) Alkaline Phosphatase 96 U/L Total Protein 7.3 GM/DL Albumin 4.1 GM/DL [facility] Medical Decision Making Medical Screen Exam Complete: Yes Emergency Medical Condition: Yes Medical Record Reviewed: Yes Interpretation(s) EG sinus rhythm, first-degree AV block with MS interval of 211. Differential Diagnosis Hyperkalemia, hypercalcemia, renal failure, other electrolyte abnormality Narrative Course Trish the physician customer relations assistant working with Dr. Walsh reports that the patient's renal function has been decreasing and her calcium level was 14.6 as an outpatient. She liked the patient be admitted medically with consultation to nephrology. She plans on providing the patient calcitonin here. Procedures EKG Prior to Arrival: Yes Diagnosis Primary Impression: Hypercalcemia Additional Impression: Acute kidney injury Admitting Information Admitting Physician Requests: Admit Jacobo Butsamante November 20, 2016 15:11
[2016-11-20 15:45] LABS: AUTOMATED NEUTROPHIL # 4.7 TH/MM3 (1.8-7.7); BASOPHIL % 0.3 % (0.0-2.0); EOSINOPHIL # 0.1 TH/MM3 (0-0.4); EOSINOPHIL % 1.2 % (0.0-4.0); HEMATOCRIT 33.1 % (35.0-46.0); HEMO FLAGS DIFF FINAL; LYMPH % 20.5 % (9.0-44.0); LYMPHOCYTE # 1.4 TH/MM3 (1.0-4.8); MEAN CELL VOLUME 92.8 FL (80.0-100.0); MEAN CORPUSCULAR HEMOGLOBIN 32.1 PG (27.0-34.0); MEAN CORPUSCULAR HGB CONC 34.6 % (32.0-36.0); PLATELET COUNT 217 TH/MM3 (150-450); RED BLOOD COUNT 3.57 MIL/MM3 (4.00-5.30); RED CELL DISTRIBUTION WIDTH 13.7 % (11.6-17.2); WHITE BLOOD COUNT 6.7 TH/MM3 (4.0-11.0)
[2016-11-20] MEDS ORDERED: SODIUM CHLOR 0.9% 1000 ML INJ 1,000 ML IV SCH (16:18)
[2016-11-20 16:21] LABS: BICARBONATE 29.6 MEQ/L (21.0-32.0); MAGNESIUM 2.5 MG/DL (1.5-2.5); POTASSIUM 3.3 MEQ/L (3.5-5.1); TOTAL BILIRUBIN ADULT 0.5 MG/DL (0.2-1.0)
[2016-11-20 16:23] VITALS: BP 141/79; PULSE 89; RESP 18; O2SAT 97
[2016-11-20 16:23] LABS: CALCIUM-PROTEIN CORRECTED 12.6 MG/DL (8.5-10.1)
[2016-11-20] MEDS ORDERED: SODIUM CHLORIDE 0.9% FLUSH 10 ML FLUSH IV FLUSH PRN (16:30)
[2016-11-20] MEDS ORDERED: ACETAMINOPHEN 325 MG TAB PO PRN (16:30)
[2016-11-20] MEDS ORDERED: NALOXONE HCL 0.4 MG/ML AMP IV PRN (16:30)
--- NOTE | 2016-11-20 16:46 | PD.CONS ---
HPI Service Nephrology Consult Requested By Jacobo Bustamante PA-C Reason for Consult Sent by our office for ARF and Hypercalcemia Primary Care Physician Dr. Batres History of Present Illness The patient is an 81 yo [place] female who presented to our office for first time consultation this past Wednesday for evaluation of declining renal functions. It was noted that her serum calcium was very elevated as per October 2016 labs at 14.2 and SCr of 2.75, so she was sent for stat repeat labs for evaluation. Lab received this AM showed a worsening Ca++ of 14.6, so she was advised to come to the hospital for evaluation and management. She reports a PMHx of primary hyperparathyroidism s/p single gland resection back in 2007 in [place]. Follows locally with Dr. Law who she states she just saw last month and told her to continue on her current regimen of Calcium 1000mg QD and Calcitriol 0.5mcg QD. States the only thing he advised for her to increase was Vitamin D3 to 4000IU once daily. Denies any current symptoms except fatigue---no bone pains, constipation, depression, polyuria, polydipsia. Outpatient labs were initiated that showed negative SPEP and FLAQUITA. PTH <2.5 Vit D 1,25-OH pending Vit D 25-OH 27 (Trish Keen) Review of Systems Constitutional: COMPLAINS OF: Fatigue (Trish Keen) Past Family Social History Allergies: Coded Allergies: Codeine (Verified Allergy, Severe, "CRAZY", 07/05/16) Procaine (Verified Allergy, Severe, NAUSEA, 07/05/16) Past Medical History Potential CKD HTN Primary hyperparathyroidism s/p sing Vit D def OA Gout GERD HLD Hx of acute pancreatitis Past Surgical History Single parathyroidectomy Reported Medications Aspir-Low (Aspirin) 81 Mg Tabdr 81 Mg PO DAILY Vitamin D (Cholecalciferol) 400 Unit Cap 400 Mg PO DAILY Magnesium Oxide 400 Mg Tab 400 Mg PO DAILY Indapamide 1.25 Mg Tab 1.25 Mg PO DAILY Lasix (Furosemide) 20 Mg Tab 20 Mg PO DAILY Cartia Xt (Diltiazem ER 24 HR) 240 Mg Caper 240 Mg PO HS Calcium 500 Mg Tab 500 Mg PO BID Calcitriol 0.5 Mcg Cap 0.5 Mcg PO DAILY Alprazolam 0.25 Mg Tab 0.25 Mg PO HS PRN Allopurinol 100 Mg Tab 100 Mg PO BID Family History Both parents Father-CAD Mother-HCV Social History Single Non-smoker Denies illicts Denies tobacco (Trish Keen) Physical Exam Vital Signs Vital Signs Date Time Temp Pulse Resp B/P Pulse Ox O2 Delivery O2 Flow Rate FiO2 11/20/16 15:33 100 Room Air 11/20/16 14:48 97.7 76 15 158/83 98 Physical Exam GENERAL: Resting in bed. Significant other present in room. NAD SKIN: Warm and dry. HEAD: Atraumatic. Normocephalic. EYES: Pupils equal and round. No scleral icterus. No injection or drainage. ENT: No nasal bleeding or discharge. Mucous membranes pink and moist. NECK: Trachea midline. No JVD. CARDIOVASCULAR: Regular rate and rhythm. RESPIRATORY: No accessory muscle use. Clear to auscultation. Breath sounds equal bilaterally. GASTROINTESTINAL: Abdomen soft, non-tender, nondistended. Hepatic and splenic margins not palpable. MUSCULOSKELETAL: Extremities without clubbing, cyanosis, or edema. No obvious deformities. NEUROLOGICAL: Awake and alert. No obvious cranial nerve deficits. Normal speech. PSYCHIATRIC: Appropriate mood and affect; insight and judgment normal. Laboratory Laboratory Tests Test 11/20/16 15:20 White Blood Count 6.7 Red Blood Count 3.57 Hemoglobin 11.4 Hematocrit 33.1 Mean Corpuscular Volume 92.8 Mean Corpuscular Hemoglobin 32.1 Mean Corpuscular Hemoglobin 34.6 Concent Red Cell Distribution Width 13.7 Platelet Count 217 Mean Platelet Volume 8.8 Neutrophils (%) (Auto) 71.0 Lymphocytes (%) (Auto) 20.5 Monocytes (%) (Auto) 7.0 Eosinophils (%) (Auto) 1.2 Basophils (%) (Auto) 0.3 Neutrophils # (Auto) 4.7 Lymphocytes # (Auto) 1.4 Monocytes # (Auto) 0.5 Eosinophils # (Auto) 0.1 Basophils # (Auto) 0.0 CBC Comment DIFF FINAL Differential Comment (Trish Keen) Result Diagram: 11/20/16 1520 Assessment and Plan Problem List: (1) Acute kidney injury superimposed on chronic kidney disease Plan: Acute component likely related to hypercalcemia causing renal vasoconstriction and natriuresis-induced volume contraction. Uncertain at this time what her baseline renal functions are as she is not well known to us, but review of her previous labs from this facility, shows a baseline SCr of 1.2-1.6 Goal is to correct hypercalcemia and the renal functions should improve. Will start on NS at 150mL/hr as well as Calcitonin 200mcg q12h x4 doses Check PTH-rP and Mg levels Hold Calcium supplement as well as Calcitriol. Will also hold Indapamide and thiazides can be associated with hypercalcemia as well. Continue on dietary vitamin D3 Will monitor labs and follow up in the AM Medications should be adjusted for the patient's renal decline. Avoid nephrotoxic medications including NSAIDs and iodinated contrast dyes. Avoid gadolinium when eGFR <30. (2) Hypercalcemia Plan: As above (3) Hypertension Plan: Hold Indapamide. Start Amlodipine 5mg QD (4) History of primary hyperparathyroidism Plan: Hold Calcitriol at the present. (5) Hypokalemia Plan: KCl repletion as ordered Likely related to thiazide. (Trish Keen) Assessment and Plan Patient apparently has a history of primary hypoparathyroidism. Uncertain if the patient's hypercalcemia is iatrogenic related to treatment for her primary hypoparathyroidism with calcium supplements and vitamin D with the patient has another underlying primary etiology of hypercalcemia. Will monitor response to treatment with saline and calcitonin. If the patient develops hypocalcemia we'll resume calcium supplementation and calcitriol at lower dosage. The exam, history, and the medical decision-making described in the above note were completed with the assistance of the PA-C. I reviewed and agree with the findings presented. I attest that I had a [id number] encounter with the patient on the same day, and personally performed and documented my assessment and findings in the medical record. (Adelfo Walsh MD) Trish Keen November 20, 2016 16:46 Adelfo Walsh MD November 20, 2016 17:59
[2016-11-20] MEDS ORDERED: POTASSIUM CHLORIDE 20 MEQ CONTROLLED RELEASE TAB PO ONE (17:15)
[2016-11-20] MEDS: SODIUM CHLOR 0.9% 1000 ML INJ 1,000 ML IV SCH (17:23)
[2016-11-20 17:33] VITALS: BP 184/86; PULSE 73; RESP 18; O2SAT 98
[2016-11-20] MEDS: CALCITONIN SALMON INJ 400 UNITS/2 ML VIAL IM SCH (17:54)
[2016-11-20] MEDS: amLODIPine BESYLATE 5 MG TAB PO SCH (17:55)
[2016-11-20] MEDS ORDERED: MAGNESIUM HYDROXIDE SUSP 30 ML CUP PO PRN (18:30)
--- NOTE | 2016-11-20 18:30 | HHI.HP ---
HPI Service [facility] Primary Care Physician Silas Batres MD Admission Diagnosis SONIA, hypercalcemia Diagnoses: Chief Complaint: fatigue, poor appetite sent here for abnormal labs (Mary Lou Macrum) Travel History International Travel<30 Days: No Contact w/Intl Traveler <30 Da: No Traveled to Known Affected Are: No (Mary Lou Marcum) History of Present Illness This an 81-year-old elderly female with past medical history hyperparathyroidism , hypertension. Patient states that she has been feeling pretty tired and fatigued with poor appetite with last couple of weeks, she went to see her primary care physician who did some lab work and noted she had kidney insufficiency. She was referred to see Dr. Walsh. States that he went to see Dr. Walsh this past week and had laboratory workup. Patient was called today and told to come to the emergency room due to abnormal lab work. Patient was evaluated in emergency room, laboratory workup was completed. BUN 48, creatinine 2.55. Calcium 12.7, protein corrected calcium 12.6. Sodium 134, potassium 3.3. Patient has history of primary hyperparathyroidism status post single gland resection back in [facility]. She follows with Dr. Law. Patient does take calcium supplements. Patient denies any chest week, no shortness of breath, no palpitations. Indicates she has been constipated, has not had a bowel movement in 2 days. She feels a little bit unsteady on her feet. Patient was evaluated by nephrology, but this has been made to admit to hospitalist services. She will be started on normal saline at 50 an hour as well as calcitonin 200 units IM every 12 hours. Her blood pressure is noted elevated, she has been started on Norvasc. Patient is admitted for further evaluation and treatment. (Mary Lou Marcum) Review of Systems Constitutional: COMPLAINS OF: Fatigue, Change in appetite, DENIES: Diaphoretic episodes, Fever, Weight gain, Weight loss, Chills, Dizziness, Night Sweats Endocrine: DENIES: Abnorml menstrual pattern, Heat/cold intolerance, Polydipsia , Polyuria, Polyphagia Eyes: DENIES: Blurred vision, Diplopia, Eye inflammation, Eye pain, Vision loss , Photosensitivity, Double Vision Ears, nose, mouth, throat: DENIES: Tinnitus, Hearing loss, Vertigo, Nasal discharge, Oral lesions, Throat pain, Hoarseness, Ear Pain, Running Nose, Epistaxis, Sinus Pain, Toothache, Odynophagia Respiratory: DENIES: Apneas, Cough, Snoring, Wheezing, Hemoptysis, Sputum production, Shortness of breath Cardiovascular: DENIES: Chest pain, Palpitations, Syncope, Dyspnea on Exertion , PND, Lower Extremity Edema, Orthopnea, Claudication Gastrointestinal: COMPLAINS OF: Constipation, Anorexia, DENIES: Abdominal pain , Black stools, Bloody stools, Diarrhea, Nausea, Vomiting, Difficulty Swallowing Genitourinary: DENIES: Abnormal vaginal bleeding, Dysmenorrhea, Dyspareunia, Sexual dysfunction, Urinary frequency, Urinary incontinence, Urgency, Hematuria , Dysuria, Nocturia, Vaginal discharge Musculoskeletal: DENIES: Joint pain, Muscle aches, Stiffness, Joint Swelling, Back pain, Neck pain Integumentary: DENIES: Abnormal pigmentation, Pruritus, Rash, Nail changes, Breast masses, Breast skin changes, Nipple discharge Hematologic/lymphatic: DENIES: Bruising, Lymphadenopathy Immunologic/allergic: DENIES: Eczema, Urticaria Neurologic: DENIES: Abnormal gait, Headache, Localized weakness, Paresthesias, Seizures, Speech Problems, Tremor, Poor Balance Psychiatric: DENIES: Anxiety, Confusion, Mood changes, Depression, Hallucinations, Agitation, Suicidal Ideation, Homicidal Ideation, Delusions ( Mary Lou Marcum) Past Family Social History Past Medical History Potential CKD HTN Primary hyperparathyroidism s/p resection of single gland Vit D def OA Gout GERD HLD Hx of acute pancreatitis Past Surgical History 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 Single parathyroidectomy Reported Medications Reported Meds & Active Scripts Active Reported Aspir-Low (Aspirin) 81 Mg Tabdr 81 Mg PO DAILY Vitamin D (Cholecalciferol) 400 Unit Cap 400 Mg PO DAILY Magnesium Oxide 400 Mg Tab 400 Mg PO DAILY Indapamide 1.25 Mg Tab 1.25 Mg PO DAILY Lasix (Furosemide) 20 Mg Tab 20 Mg PO DAILY Cartia Xt (Diltiazem ER 24 HR) 240 Mg Caper 240 Mg PO HS Calcium 500 Mg Tab 500 Mg PO BID Calcitriol 0.5 Mcg Cap 0.5 Mcg PO DAILY Alprazolam 0.25 Mg Tab 0.25 Mg PO HS PRN Allopurinol 100 Mg Tab 100 Mg PO BID (Mary Lou Marcum) Allergies: Coded Allergies: Codeine (Verified Allergy, Severe, "CRAZY", 07/05/16) Procaine (Verified Allergy, Severe, NAUSEA, 07/05/16) Active Ordered Medications Inpatient Medications Acetaminophen (Tylenol) 650 mg Q4H PRN PO TEMP > 100.4; Start 11/20/16 at 16:30 Amlodipine Besylate (Norvasc) 5 mg DAILY PO Last administered on 11/20/16 17: 55; Start 11/20/16 at 17:30 Calcitonin [place] 200 units 200 units Q12H IM Last administered on 11/20/16 17 :54; Start 11/20/16 at 18:00 Naloxone HCl (Narcan Inj) 0.4 mg UNSCH PRN IV SEE LABEL COMMENTS; Start at 16:30 Ondansetron HCl (Zofran Inj) 4 mg Q6H PRN IVP NAUSEA OR VOMITING; Start at 16:30 Potassium Chloride (KCl) 20 meq ONCE ONCE PO Last administered on 11/20/16 17 :23; Start 11/20/16 at 17:15; Stop 11/20/16 at 17:16; Status DC Sodium Chloride (NS 1000 ml Inj) 1,000 ml @ 75 mls/hr [id number] IV ; Start at 16:18; Stop 11/20/16 at 16:31; Status DC Sodium Chloride (NS Flush) 2 ml BID IV FLUSH ; Start 11/20/16 at 21:00 Family History Both parents Father-CAD Mother-HCV Social History Single, has significant other. Has 2 grown daughters. Non-smoker Denies illicts Denies tobacco (Mary Lou Marcum) Physical Exam Vital Signs Vital Signs Date Time Temp Pulse Resp B/P Pulse Ox O2 Delivery O2 Flow Rate FiO2 11/20/16 17:33 73 18 184/86 98 Room Air 11/20/16 15:33 100 Room Air 11/20/16 14:48 97.7 76 15 158/83 98 Physical Exam GENERAL: This is a well-nourished, well-developed patient, in no apparent distress. SKIN: No rashes, ecchymoses or lesions. Cool and dry. HEAD: Atraumatic. Normocephalic. No temporal or scalp tenderness. EYES: Pupils equal round and reactive. Extraocular motions intact. No scleral icterus. No injection or drainage. ENT: Nose without bleeding, purulent drainage or septal hematoma. Throat without erythema, tonsillar hypertrophy or exudate. Uvula midline. Airway patent. NECK: Trachea midline. No JVD or lymphadenopathy. Supple, nontender, no meningeal signs. CARDIOVASCULAR: Regular rate and rhythm without murmurs, gallops, or rubs. RESPIRATORY: Clear to auscultation. Breath sounds equal bilaterally. No wheezes , rales, or rhonchi. GASTROINTESTINAL: Abdomen soft, non-tender, nondistended. No hepato-splenomegaly , or palpable masses. No guarding. MUSCULOSKELETAL: Extremities without clubbing, cyanosis, or edema. No joint tenderness, effusion, or edema noted. No calf tenderness. Negative Homans sign bilaterally. NEUROLOGICAL: Awake and alert. Cranial nerves II through XII intact. Motor and sensory grossly within normal limits. Five out of 5 muscle strength in all muscle groups. Normal speech. Laboratory Laboratory Tests Test 11/20/16 15:20 White Blood Count 6.7 Red Blood Count 3.57 Hemoglobin 11.4 Hematocrit 33.1 Mean Corpuscular Volume 92.8 Mean Corpuscular Hemoglobin 32.1 Mean Corpuscular Hemoglobin 34.6 Concent Red Cell Distribution Width 13.7 Platelet Count 217 Mean Platelet Volume 8.8 Neutrophils (%) (Auto) 71.0 Lymphocytes (%) (Auto) 20.5 Monocytes (%) (Auto) 7.0 Eosinophils (%) (Auto) 1.2 Basophils (%) (Auto) 0.3 Neutrophils # (Auto) 4.7 Lymphocytes # (Auto) 1.4 Monocytes # (Auto) 0.5 Eosinophils # (Auto) 0.1 Basophils # (Auto) 0.0 CBC Comment DIFF FINAL Differential Comment Sodium Level 134 Potassium Level 3.3 Chloride Level 95 Carbon Dioxide Level 29.6 Anion Gap 9 Blood Urea Nitrogen 48 Creatinine 3.55 Estimat Glomerular Filtration 12 Rate Random Glucose 115 Calcium Level 12.7 Protein Corrected Calcium 12.6 Magnesium Level 2.5 Total Bilirubin 0.5 Aspartate Amino Transf 22 (AST/SGOT) Alanine Aminotransferase 30 (ALT/SGPT) Alkaline Phosphatase 96 Total Protein 7.3 Albumin 4.1 (Mary Lou Marcum) Result Diagram: 11/20/16 1520 11/20/16 1520 Assessment and Plan Problem List: (1) Hypercalcemia (2) Acute kidney injury (3) Hypokalemia (4) SONIA (acute kidney injury) (5) Hypertension (6) History of primary hyperparathyroidism (7) Acute kidney injury superimposed on chronic kidney disease (8) Anemia (9) Constipation Assessment and Plan Admit to Dr. French 81-year-old elderly female with history of primary hyperparathyroidism, hypertension. Recently found with renal insufficiency. Presented to emergency room with abnormal lab work. Endorses history of feeling fatigued, tired with poor appetite. Acute on chronic kidney disease Nephrology has been consulted, input appreciated Continue normal saline at 50 an hour Follow BMP daily Avoid nephrotoxic agents, MALU inhibitor's and diuretics. -Hold indapamide. Hypercalcemia Continue with hydration Follow calcium levels daily Hold thiazide diuretic -Nephrology following, workup in progress. Hypertension, blood pressure elevated Hold diltiazem Continue with amlodipine 5 mg by mouth daily Add clonidine 0.1 mg by mouth every 6 when necessary for systolic greater than 160, diastolic greater than 90. History of primary hyperparathyroidism Nephrology following, patient follows up with endocrinology as outpatient Hypokalemia Potassium has been replaced Follow BMP in the morning Constipation, possibly secondary to hypercalcemia MiraLAX daily Milk of magnesia when necessary Anemia, likely secondary to chronic kidney disease Follow CBC Home medications reviewed, initiated as indicated SCDs for DVT prophylaxis Plan of care has been discussed with the patient, attending and registered nurse. Further management of the patient will be dependent on the hospital course This patient was seen by myself and Dr. 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 In the case of services not specified as inpatient-only, they are appropriately provided as inpatient services in accordance with the 2-midnight benchmark. Estimated LOS (days): 2 2 days is the estimated time the patient will need to remain in the hospital, assuming treatment plan goals are met and no additional complications. Post-Hospital Plan: Home (Mary Lou Marcum) Problem Qualifiers (1) Hypertension: Qualified Code: I10 - Essential hypertension (2) Constipation: Qualified Code: K59.00 - Constipation, unspecified constipation type Mary Lou Marcum November 20, 2016 18:30 Anette French MD November 21, 2016 09:55
[2016-11-20 18:57] VITALS: BP 167/94; PULSE 89; RESP 20; O2SAT 98
[2016-11-20 20:00] VITALS: BP 178/81; PULSE 78; RESP 19; TEMP 96.6; O2SAT 96
[2016-11-20] MEDS: POLYETHYLENE GLYCOL 17 GM PKG PO SCH (20:04)
[2016-11-20] MEDS: SODIUM CHLORIDE 0.9% FLUSH 10 ML FLUSH IV FLUSH SCH (20:05)
[2016-11-20] MEDS ORDERED: DILTIAZEM-CD 240 MG CAP ER PO SCH (21:00)
[2016-11-20] MEDS: cloNIDine HCL 0.1 MG TAB PO PRN (21:37)
[2016-11-20 21:51] VITALS: BP 198/87; PULSE 89
[2016-11-21] VITALS (8 sets, daily range): BP systolic 150–177; BP diastolic 71–85; PULSE 72–84; RESP 18–19; TEMP 97–98.2; O2SAT 95–98
[2016-11-21] MEDS: CALCITONIN SALMON INJ 400 UNITS/2 ML VIAL IM SCH (05:30)
[2016-11-21] MEDS: SODIUM CHLOR 0.9% 1000 ML INJ 1,000 ML IV SCH ×3 (05:30→20:10)
[2016-11-21 07:09] LABS: AUTOMATED NEUTROPHIL # 4.8 TH/MM3 (1.8-7.7); BASOPHIL % 0.3 % (0.0-2.0); EOSINOPHIL # 0.2 TH/MM3 (0-0.4); EOSINOPHIL % 2.3 % (0.0-4.0); HEMATOCRIT 28.9 % (35.0-46.0); HEMO FLAGS DIFF FINAL; LYMPH % 18.6 % (9.0-44.0); LYMPHOCYTE # 1.3 TH/MM3 (1.0-4.8); MEAN CELL VOLUME 92.1 FL (80.0-100.0); MEAN CORPUSCULAR HEMOGLOBIN 32.7 PG (27.0-34.0); MEAN CORPUSCULAR HGB CONC 35.5 % (32.0-36.0); MONO % 7.9 % (0.0-8.0); NEUT % 70.9 % (16.0-70.0); PLATELET COUNT 194 TH/MM3 (150-450); RED BLOOD COUNT 3.14 MIL/MM3 (4.00-5.30); RED CELL DISTRIBUTION WIDTH 13.5 % (11.6-17.2); WHITE BLOOD COUNT 6.8 TH/MM3 (4.0-11.0)
[2016-11-21 07:38] LABS: ALKALINE PHOSPHATASE 84 U/L (45-117); ALT (GPT) 25 U/L (10-53); ANION GAP 11 MEQ/L (5-15); AST (GOT) 16 U/L (15-37); BICARBONATE 26.2 MEQ/L (21.0-32.0); BLOOD UREA NITROGEN 39 MG/DL (7-18); CHLORIDE 104 MEQ/L (98-107); GLOMERULAR FILTRATION RATE 15 ML/MIN (>89); POTASSIUM 3.4 MEQ/L (3.5-5.1); SODIUM (NA) 141 MEQ/L (136-145); TOTAL BILIRUBIN ADULT 0.4 MG/DL (0.2-1.0)
[2016-11-21] MEDS ORDERED: POTASSIUM CHLORIDE 25 MEQ EFFERVESCENT TAB PO ONE (08:00)
[2016-11-21] MEDS: POLYETHYLENE GLYCOL 17 GM PKG PO SCH (08:06)
[2016-11-21] MEDS: ASPIRIN EC 81 MG TABEC PO SCH (08:06)
[2016-11-21] MEDS: amLODIPine BESYLATE 5 MG TAB PO SCH (08:06)
[2016-11-21] MEDS: SODIUM CHLORIDE 0.9% FLUSH 10 ML FLUSH IV FLUSH SCH ×2 (08:11→20:11)
--- NOTE | 2016-11-21 09:58 | HHI.PR ---
Subjective Remarks weakness is improving had BM inc energy no other complaint ROS for 10 point system is unremarkable Objective Objective Results - Vital Signs Date Time Temp Pulse Resp B/P Pulse Ox O2 Delivery O2 Flow Rate FiO2 11/21/16 08:00 97.5 72 18 150/85 96 11/21/16 04:00 97.3 74 18 154/71 96 11/21/16 00:00 98.2 84 19 164/75 95 11/20/16 21:51 89 198/87 11/20/16 20:00 96.6 78 19 178/81 96 11/20/16 18:57 89 20 167/94 98 11/20/16 17:33 73 18 184/86 98 Room Air 11/20/16 15:33 100 Room Air 11/20/16 14:48 97.7 76 15 158/83 98 I/O 11/20/16 11/20/16 11/20/16 11/21/16 11/21/16 11/21/16 07:00 15:00 23:00 07:00 15:00 23:00 Intake Total 440 ml 920 ml Balance 440 ml 920 ml Intake Oral 240 ml 120 ml IV Total 200 ml 800 ml # Voids 1 1 # Bowel Movements 1 1 Result Diagram: 11/21/16 0646 11/21/16 0646 Other Results Laboratory Tests Test 11/20/16 11/21/16 15:20 06:46 White Blood Count 6.7 6.8 Red Blood Count 3.57 3.14 Hemoglobin 11.4 10.3 Hematocrit 33.1 28.9 Mean Corpuscular Volume 92.8 92.1 Mean Corpuscular Hemoglobin 32.1 32.7 Mean Corpuscular Hemoglobin 34.6 35.5 Concent Red Cell Distribution Width 13.7 13.5 Platelet Count 217 194 Mean Platelet Volume 8.8 8.7 Neutrophils (%) (Auto) 71.0 70.9 Lymphocytes (%) (Auto) 20.5 18.6 Monocytes (%) (Auto) 7.0 7.9 Eosinophils (%) (Auto) 1.2 2.3 Basophils (%) (Auto) 0.3 0.3 Neutrophils # (Auto) 4.7 4.8 Lymphocytes # (Auto) 1.4 1.3 Monocytes # (Auto) 0.5 0.5 Eosinophils # (Auto) 0.1 0.2 Basophils # (Auto) 0.0 0.0 CBC Comment DIFF FINAL DIFF FINAL Differential Comment Sodium Level 134 141 Potassium Level 3.3 3.4 Chloride Level 95 104 Carbon Dioxide Level 29.6 26.2 Anion Gap 9 11 Blood Urea Nitrogen 48 39 Creatinine 3.55 2.93 Estimat Glomerular Filtration 12 15 Rate Random Glucose 115 121 Calcium Level 12.7 11.0 Protein Corrected Calcium 12.6 Magnesium Level 2.5 Total Bilirubin 0.5 0.4 Aspartate Amino Transf 22 16 (AST/SGOT) Alanine Aminotransferase 30 25 (ALT/SGPT) Alkaline Phosphatase 96 84 Total Protein 7.3 6.5 Albumin 4.1 3.5 Physical Exam Physical Exam GENERAL: This is a well-nourished, well-developed patient, in no apparent distress. SKIN: No rashes, ecchymoses or lesions. Cool and dry. HEAD: Atraumatic. Normocephalic. No temporal or scalp tenderness. EYES: Pupils equal round and reactive. Extraocular motions intact. No scleral icterus. No injection or drainage. ENT: Airway patent. NECK: Trachea midline. No JVD or lymphadenopathy. Supple, nontender, no meningeal signs. CARDIOVASCULAR: Regular rate and rhythm without murmurs, gallops, or rubs. RESPIRATORY: Clear to auscultation. Breath sounds equal bilaterally. No wheezes , rales, or rhonchi. GASTROINTESTINAL: Abdomen soft, non-tender, nondistended. No hepato-splenomegaly , or palpable masses. No guarding. MUSCULOSKELETAL: Extremities without clubbing, cyanosis, or edema. No joint tenderness, effusion, or edema noted. No calf tenderness. Negative Homans sign bilaterally. NEUROLOGICAL: Awake and alert. Cranial nerves II through XII intact. Motor and sensory grossly within normal limits. Five out of 5 muscle strength in all muscle groups. Normal speech. A/P Assessment and Plan (1) Hypercalcemia (2) Acute kidney injury (3) Hypokalemia (4) SONIA (acute kidney injury) (5) Hypertension (6) History of primary hyperparathyroidism (7) Acute kidney injury superimposed on chronic kidney disease (8) Anemia (9) Constipation Plan 81-year-old elderly female with history of primary hyperparathyroidism, hypertension. Recently found with renal insufficiency. Presented to emergency room with abnormal lab work. Endorses history of feeling fatigued, tired with poor appetite. Acute on chronic kidney disease Nephrology input appreciated Continue normal saline Follow BMP daily Avoid nephrotoxic agents, MALU inhibitor's and diuretics. -Hold indapamide. Hypercalcemia Continue with hydration Follow calcium levels daily Hold thiazide diuretic -Nephrology following, workup in progress. -on calcitonin Hypertension, blood pressure elevated Hold diltiazem Continue with amlodipine 5 mg by mouth daily Add clonidine 0.1 mg by mouth every 6 when necessary for systolic greater than 160, diastolic greater than 90. History of primary hyperparathyroidism Nephrology following, patient follows up with endocrinology as outpatient Hypokalemia Potassium has been replaced Follow BMP in the morning will replace today adn monitor Constipation, possibly secondary to hypercalcemia, better MiraLAX daily Milk of magnesia when necessary Anemia, likely secondary to chronic kidney disease Follow CBC Home medications reviewed, initiated as indicated SCDs for DVT prophylaxis Plan of care has been discussed with the patient and registered nurse. Further management of the patient will be dependent on the hospital course Anette French MD November 21, 2016 09:58
[2016-11-21] MEDS ORDERED: POTASSIUM CHLORIDE 20 MEQ CONTROLLED RELEASE TAB PO ONE (10:00)
[2016-11-21] MEDS ORDERED: INFLUENZA VIRUS VACCINE (QUADRIVALENT) 0.5 ML SYR IM ONE (10:00)
--- NOTE | 2016-11-21 12:31 | HHI.NPPN ---
Subjective History of Present Illness The patient is an 81 yo [place] female who presented to our office for first time consultation this past Wednesday for evaluation of declining renal functions. It was noted that her serum calcium was very elevated as per October 2016 labs at 14.2 and SCr of 2.75, so she was sent for stat repeat labs for evaluation. Lab received this AM showed a worsening Ca++ of 14.6, so she was advised to come to the hospital for evaluation and management. She reports a PMHx of primary hyperparathyroidism s/p single gland resection back in 2007 in [place]. Follows locally with Dr. Law who she states she just saw last month and told her to continue on her current regimen of Calcium 1000mg QD and Calcitriol 0.5mcg QD. States the only thing he advised for her to increase was Vitamin D3 to 4000IU once daily. Denies any current symptoms except fatigue---no bone pains, constipation, depression, polyuria, polydipsia. Outpatient labs were initiated that showed negative SPEP and FLAQUITA. Interval History The patient indicated that she was feeling much better today. Review of Systems General Constitutional: Fatigue Objective Data Data 11/20/16 11/21/16 19:00 07:00 Intake Total 1360 ml Balance 1360 ml Intake Oral 360 ml IV Total 1000 ml # Voids 2 # Bowel Movements 2 Vital Signs Date Time Temp Pulse Resp B/P Pulse Ox O2 Delivery O2 Flow Rate FiO2 11/21/16 08:45 73 11/21/16 08:00 97.5 72 18 150/85 96 11/21/16 04:00 97.3 74 18 154/71 96 11/21/16 00:00 98.2 84 19 164/75 95 11/20/16 21:51 89 198/87 11/20/16 20:00 96.6 78 19 178/81 96 11/20/16 18:57 89 20 167/94 98 11/20/16 17:33 73 18 184/86 98 Room Air 11/20/16 15:33 100 Room Air 11/20/16 14:48 97.7 76 15 158/83 98 -: 11/21/16 0646 11/21/16 0646 Physical Exam General Appearance: Well Developed, Well Nourished, No Acute Distress, Comfortable Eyes Eye Exam: Sclera White Neck Neck Exam: Trachea Midline Pulmonary Resp Exam: Clear Bilaterally, Breath Sounds Equal, No Distress Cardiology CV Exam: Regular, Normal Sinus Rhythm Gastrointestinal/Abdomen GI Exam: Soft, Non-Tender Integumentary Skin Exam: Clear, Warm, Intact Extremeties Extremities Exam: No Edema Assessment/Plan Discussed Condition With: Patient Problem List: (1) Acute kidney injury superimposed on chronic kidney disease Plan: Acute component likely related to hypercalcemia causing renal vasoconstriction and natriuresis-induced volume contraction. Uncertain at this time what her baseline renal functions are as she is not well known to us, but review of her previous labs from this facility, shows a baseline SCr of 1.2-1.6 Patient's creatinine and calcium levels improving with normal saline and calcitonin. We'll discontinue calcitonin later today as it loses effectiveness after 48 hours. If the patient's calcium and creatinine level continued to improve tomorrow again could consider discharge planning as long as adequate oral hydration takes place as an outpatient. Patient advised to clarify outpatient calcitriol dosage tomorrow. If discharge would consider reducing dose by 50% with subsequent follow-up calcium level and basic metabolic profile about 4 days post discharge. Patient to see me in the office if discharged in approximately 1-2 weeks. Patient did not get a chance to do the outpatient ultrasound of the kidneys prior to admission. It will be ordered in house. Will also hold Indapamide and thiazides can be associated with hypercalcemia as well. Continue on dietary vitamin D3 Medications should be adjusted for the patient's renal decline. Avoid nephrotoxic medications including NSAIDs and iodinated contrast dyes. Avoid gadolinium when eGFR <30. (2) Hypercalcemia Plan: As above (3) Hypertension Plan: Hold Indapamide. Started Amlodipine 5mg QD (4) History of primary hyperparathyroidism Plan: Hold Calcitriol at the present. (5) Hypokalemia Plan: KCl repletion as ordered Likely related to thiazide. Problem Qualifiers (1) Hypertension: Qualified Code: I10 - Essential hypertension Adelfo Walsh MD November 21, 2016 12:31
--- NOTE | 2016-11-21 15:30 | RADRPT ---
EXAM DATE/TIME: 11/21/2016 12:56 [facility] COMPARISON: CT ABDOMEN & PELVIS W CONTRAST, January 26, 2016, 3:40. INDICATIONS : Abnormal labs. MEDICAL HISTORY : Hypertension. Arthritis. SURGICAL HISTORY : Tonsillectomy. Hysterectomy. Thyroidectomy. ENCOUNTER: Initial ACUITY: 1 day PAIN SCORE: 2/10 LOCATION: Bilateral flank MEASUREMENTS: RIGHT KIDNEY: 9.9 x 5.6 x 5.7 cm LEFT KIDNEY: 10.7 x 5.0 x 5.0 cm FINDINGS: RIGHT KIDNEY: Renal cortex is normal in thickness and echotexture. No hydronephrosis, stone, or mass. LEFT KIDNEY: Renal cortex is normal in thickness and echotexture. No hydronephrosis, stone, or solid mass. There is a 2.2 cm cyst at the lower pole and a 3.4 cm cyst at the mid left kidney. BLADDER: Within normal limits given the degree of distension. CONCLUSION: Negative renal ultrasound examination. Left renal cysts are seen. Kalpesh Miramontes MD on November 21, 2016 at 15:27 Board Certified Radiologist. This report was verified electronically.
[2016-11-21] MEDS: cloNIDine HCL 0.1 MG TAB PO PRN ×2 (15:41→23:56)
--- NOTE | 2016-11-21 16:04 | EKG ---
Date Performed: 11/20/2016 Time Performed: 16:36:32 PTAGE: 81 years EKG: Sinus rhythm WITH FIRST DEGREE AV BLOCK MODERATE VOLTAGE CRITERIA FOR LVH, CONSIDER NORMAL VARIANT NONSPECIFIC T- WAVE ABNORMALITY ABNORMAL ECG Compared to prior tracing no significant change PREVIOUS TRACING : 07/05/2016 12.52 DOCTOR: Talita Garcia Interpretating Date/Time 11/21/2016 16:02:46
[2016-11-21] MEDS ORDERED: CALCITONIN SALMON INJ 400 UNITS/2 ML VIAL SQ SCH (18:00)
[2016-11-21] MEDS: ONDANSETRON HCL 4 MG/2 ML VIAL IVP PRN (22:43)
[2016-11-22] VITALS (9 sets, daily range): BP systolic 139–190; BP diastolic 71–84; PULSE 60–88; RESP 17–20; TEMP 96.7–97.7; O2SAT 94–97
[2016-11-22] MEDS: SODIUM CHLOR 0.9% 1000 ML INJ 1,000 ML IV SCH ×3 (05:16→22:18)
[2016-11-22 07:10] LABS: HEMATOCRIT 28.8 % (35.0-46.0); MEAN CELL VOLUME 93.6 FL (80.0-100.0); MEAN CORPUSCULAR HEMOGLOBIN 32.2 PG (27.0-34.0); MEAN CORPUSCULAR HGB CONC 34.4 % (32.0-36.0); PLATELET COUNT 186 TH/MM3 (150-450); RED BLOOD COUNT 3.08 MIL/MM3 (4.00-5.30); RED CELL DISTRIBUTION WIDTH 13.5 % (11.6-17.2); REVIEW FLAG FINAL; WHITE BLOOD COUNT 6.3 TH/MM3 (4.0-11.0)
[2016-11-22 07:33] LABS: CALCIUM-PROTEIN CORRECTED 10.1 MG/DL (8.5-10.1); POTASSIUM 3.7 MEQ/L (3.5-5.1)
[2016-11-22] MEDS: SODIUM CHLORIDE 0.9% FLUSH 10 ML FLUSH IV FLUSH SCH ×2 (09:00→22:18)
[2016-11-22] MEDS: POLYETHYLENE GLYCOL 17 GM PKG PO SCH (09:00)
[2016-11-22] MEDS: amLODIPine BESYLATE 5 MG TAB PO SCH (09:59)
[2016-11-22] MEDS: ASPIRIN EC 81 MG TABEC PO SCH (09:59)
--- NOTE | 2016-11-22 11:11 | HHI.PR ---
Subjective Remarks weakness is improving now walking no other complaint had BM increasing energy energy ROS for 10 point system is unremarkable Objective Objective Results - Vital Signs Date Time Temp Pulse Resp B/P Pulse Ox O2 Delivery O2 Flow Rate FiO2 11/22/16 08:00 97.5 75 20 139/71 97 11/22/16 04:00 97.3 77 18 179/84 96 11/22/16 00:00 97.7 81 17 190/83 96 11/21/16 20:17 76 11/21/16 20:00 97.0 75 18 176/84 97 11/21/16 16:22 97.1 76 18 177/78 98 11/21/16 12:22 97.2 74 18 165/75 97 I/O 11/21/16 11/21/16 11/21/16 11/22/16 11/22/16 11/22/16 07:00 15:00 23:00 07:00 15:00 23:00 Intake Total 920 ml 2146 ml 480 ml 1140 ml Output Total 650 ml Balance 920 ml 2146 ml 480 ml 490 ml Intake Oral 120 ml 960 ml 480 ml 240 ml IV Total 800 ml 1186 ml 900 ml Output Urine Total 650 ml # Voids 1 4 4 1 # Bowel Movements 1 1 1 Result Diagram: 11/22/16 0642 11/22/16 0642 Other Results Laboratory Tests Test 11/22/16 06:42 White Blood Count 6.3 Red Blood Count 3.08 Hemoglobin 9.9 Hematocrit 28.8 Mean Corpuscular Volume 93.6 Mean Corpuscular Hemoglobin 32.2 Mean Corpuscular Hemoglobin 34.4 Concent Red Cell Distribution Width 13.5 Platelet Count 186 Mean Platelet Volume 8.8 Sodium Level 144 Potassium Level 3.7 Chloride Level 110 Carbon Dioxide Level 25.0 Anion Gap 9 Blood Urea Nitrogen 29 Creatinine 2.36 Estimat Glomerular Filtration 20 Rate Random Glucose 96 Calcium Level 9.6 Protein Corrected Calcium 10.1 Total Protein 6.4 Physical Exam Physical Exam GENERAL: This is a well-nourished, well-developed patient, in no apparent distress. SKIN: No rashes, ecchymoses or lesions. Cool and dry. HEAD: Atraumatic. Normocephalic. No temporal or scalp tenderness. EYES: Pupils equal round and reactive. Extraocular motions intact. No scleral icterus. No injection or drainage. ENT: Airway patent. NECK: Trachea midline. No JVD or lymphadenopathy. Supple, nontender, no meningeal signs. CARDIOVASCULAR: Regular rate and rhythm without murmurs, gallops, or rubs. RESPIRATORY: Clear to auscultation. Breath sounds equal bilaterally. No wheezes , rales, or rhonchi. GASTROINTESTINAL: Abdomen soft, non-tender, nondistended. No hepato-splenomegaly , or palpable masses. No guarding. MUSCULOSKELETAL: Extremities without clubbing, cyanosis, or edema. No joint tenderness, effusion, or edema noted. No calf tenderness. Negative Homans sign bilaterally. NEUROLOGICAL: Awake and alert. Cranial nerves II through XII intact. Motor and sensory grossly within normal limits. Five out of 5 muscle strength in all muscle groups. Normal speech. A/P Assessment and Plan (1) Hypercalcemia (2) Acute kidney injury (3) Hypokalemia (4) SONIA (acute kidney injury) (5) Hypertension (6) History of primary hyperparathyroidism (7) Acute kidney injury superimposed on chronic kidney disease (8) Anemia (9) Constipation Plan 81-year-old elderly female with history of primary hyperparathyroidism, hypertension. Recently found with renal insufficiency. Presented to emergency room with abnormal lab work. Endorses history of feeling fatigued, tired with poor appetite. Acute on chronic kidney disease, improving Nephrology input appreciated Continue normal saline Follow BMP daily Avoid nephrotoxic agents, MALU inhibitor's and diuretics. -Hold indapamide. Hypercalcemia, improved Continue with hydration Follow calcium levels daily Hold thiazide diuretic -Nephrology following, workup in progress. 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 History of primary hyperparathyroidism Nephrology following, patient follows up with endocrinology as outpatient Hypokalemia Potassium has been replaced Follow BMP in the morning Constipation, possibly secondary to hypercalcemia, better MiraLAX daily Milk of magnesia when necessary Anemia, likely secondary to chronic kidney disease Follow CBC Home medications reviewed, initiated as indicated SCDs for DVT prophylaxis Plan of care has been discussed with the patient and registered nurse. Further management of the patient will be dependent on the hospital course Anette French MD November 22, 2016 11:11
[2016-11-22] MEDS: cloNIDine HCL 0.1 MG TAB PO PRN ×2 (17:01→22:35)
[2016-11-22] MEDS: ONDANSETRON HCL 4 MG/2 ML VIAL IVP PRN ×2 (17:01→22:18)
[2016-11-23] VITALS: BP 172/72; PULSE 86; RESP 20; TEMP 97.1; O2SAT 96
[2016-11-23 04:00] VITALS: BP 167/74; PULSE 81; RESP 20; TEMP 97; O2SAT 96
[2016-11-23] MEDS: cloNIDine HCL 0.1 MG TAB PO PRN (04:37)
[2016-11-23] MEDS: POLYETHYLENE GLYCOL 17 GM PKG PO SCH (08:29)
[2016-11-23] MEDS: SODIUM CHLORIDE 0.9% FLUSH 10 ML FLUSH IV FLUSH SCH (08:32)
[2016-11-23] MEDS: amLODIPine BESYLATE 5 MG TAB PO SCH (08:34)
[2016-11-23] MEDS: ASPIRIN EC 81 MG TABEC PO SCH (08:34)
[2016-11-23 08:45] VITALS: BP 146/63; PULSE 78; RESP 16; TEMP 98.1; O2SAT 94
[2016-11-23 09:53] LABS: HEMATOCRIT 28.4 % (35.0-46.0); MEAN CELL VOLUME 93.3 FL (80.0-100.0); MEAN CORPUSCULAR HEMOGLOBIN 32.4 PG (27.0-34.0); MEAN CORPUSCULAR HGB CONC 34.7 % (32.0-36.0); PLATELET COUNT 188 TH/MM3 (150-450); RED BLOOD COUNT 3.05 MIL/MM3 (4.00-5.30); RED CELL DISTRIBUTION WIDTH 13.4 % (11.6-17.2); REVIEW FLAG FINAL
[2016-11-23 10:34] LABS: BICARBONATE 22.6 MEQ/L (21.0-32.0); POTASSIUM 3.1 MEQ/L (3.5-5.1)
--- NOTE | 2016-11-23 11:50 | HHI.NPPN ---
Subjective History of Present Illness The patient is an 81 yo [place] female who presented to our office for first time consultation this past Wednesday for evaluation of declining renal functions. It was noted that her serum calcium was very elevated as per October 2016 labs at 14.2 and SCr of 2.75, so she was sent for stat repeat labs for evaluation. Lab received this AM showed a worsening Ca++ of 14.6, so she was advised to come to the hospital for evaluation and management. She reports a PMHx of primary hyperparathyroidism s/p single gland resection back in 2007 in [place]. Follows locally with Dr. Law who she states she just saw last month and told her to continue on her current regimen of Calcium 1000mg QD and Calcitriol 0.5mcg QD. States the only thing he advised for her to increase was Vitamin D3 to 4000IU once daily. Denies any current symptoms except fatigue---no bone pains, constipation, depression, polyuria, polydipsia. Outpatient labs were initiated that showed negative SPEP and FLAQUITA. Interval History No complaints today. Ready to go home Objective Data Data 11/22/16 11/23/16 19:00 07:00 Intake Total 2211 ml 1540 ml Balance 2211 ml 1540 ml Intake Oral 1320 ml 840 ml IV Total 891 ml 700 ml # Voids 4 5 # Bowel Movements 2 1 Vital Signs Date Time Temp Pulse Resp B/P Pulse Ox O2 Delivery O2 Flow Rate FiO2 11/23/16 08:45 98.1 78 16 146/63 94 11/23/16 04:00 97.0 81 20 167/74 96 11/23/16 00:00 97.1 86 20 172/72 96 11/22/16 20:00 97.2 84 19 140/73 96 11/22/16 19:00 60 11/22/16 18:23 88 157/72 11/22/16 16:22 97.3 76 18 175/83 96 11/22/16 12:22 96.7 69 20 166/78 94 -: 11/23/16 0915 11/23/16 0915 Medication Review Current Medications Medications (Trade) Dose Ordered Sig/Vanessa Route Start Time Stop Time Status Last Admin (NS 1000 ml Inj) 1,000 ml @ 70 mls/hr [id number] IV 11/20/16 17:00 11/22/16 21:03 (NS Flush) 2 ml UNSCH PRN IV FLUSH 11/20/16 16:30 (NS Flush) 2 ml BID IV FLUSH 11/20/16 21:00 11/23/16 08:32 (Tylenol) 650 mg Q4H PRN PO 11/20/16 16:30 (Zofran Inj) 4 mg Q6H PRN IVP 11/20/16 16:30 11/22/16 22:18 (Narcan Inj) 0.4 mg UNSCH PRN IV 11/20/16 16:30 (Norvasc) 5 mg DAILY PO 11/20/16 17:30 11/23/16 08:34 (Miralax) 17 gm DAILY PO 11/20/16 20:00 11/21/16 08:06 (Milk Of Magnesia Liq) 30 ml DAILY PRN PO 11/20/16 18:30 (Catapres) 0.1 mg Q6H PRN PO 11/20/16 18:45 11/23/16 04:37 (Ecotrin Ec) 81 mg DAILY PO 11/21/16 09:00 11/23/16 08:34 Physical Exam General Appearance: Well Developed, Well Nourished, No Acute Distress, Comfortable Eyes Eye Exam: Sclera White Neck Neck Exam: Trachea Midline Pulmonary Resp Exam: Clear Bilaterally, Breath Sounds Equal, No Distress Cardiology CV Exam: Regular, Normal Sinus Rhythm Gastrointestinal/Abdomen GI Exam: Soft, Non-Tender Integumentary Skin Exam: Clear, Warm, Intact Extremeties Extremities Exam: No Edema Neurologic Neuro Exam: Alert, Awake, Oriented Psychiatric Psych Exam: Appropriate Responses Assessment/Plan Discussed Condition With: Patient Problem List: (1) Acute kidney injury superimposed on chronic kidney disease Plan: Acute component likely related to hypercalcemia causing renal vasoconstriction and natriuresis-induced volume contraction. Uncertain at this time what her baseline renal functions are as she is not well known to us, but review of her previous labs from this facility, shows a baseline SCr of 1.2-1.6 Improving daily Advised to contact Dr. Law today at discharge to see what dose of Calcitriol he wants her on. Would consider reducing dose by 50% with subsequent follow-up calcium level and basic metabolic profile about 4 days post discharge. Continue to hold calcium supplement and Indapamide post-discharge Continue on dietary vitamin D3 Medications should be adjusted for the patient's renal decline. Avoid nephrotoxic medications including NSAIDs and iodinated contrast dyes. Avoid gadolinium when eGFR <30. (2) Hypercalcemia Plan: As above (3) Hypertension Plan: Continue on Norvasc as ordered as outpatient (4) History of primary hyperparathyroidism Plan: As above (5) Hypokalemia Plan: KCl as ordered Problem Qualifiers (1) Hypertension: Qualified Code: I10 - Essential hypertension Trish Keen November 23, 2016 11:49
[2016-11-23 12:00] VITALS: BP 168/80; PULSE 69; RESP 16; TEMP 97.3; O2SAT 95
[2016-11-23] MEDS ORDERED: POTASSIUM CHLORIDE 10 MEQ CONTROLLED RELEASE TAB PO ONE (12:00)
[2016-11-23] MEDS ORDERED: CALC0.25 PO (12:27)
--- NOTE | 2016-11-23 12:56 | HHI.PR ---
Subjective Interval History awake alert and oriented feeling better ambulating in hallway anxious to go home no other complaints Vitals/Results Intake & Output 11/22/16 11/22/16 11/23/16 14:59 22:59 06:59 Intake Total 2211 ml 720 ml 820 ml Balance 2211 ml 720 ml 820 ml Intake Oral 1320 ml 720 ml 120 ml IV Total 891 ml 700 ml # Voids 4 4 1 # Bowel Movements 2 1 Vital Signs Vital Signs Date Time Temp Pulse Resp B/P Pulse Ox O2 Delivery O2 Flow Rate FiO2 11/23/16 08:45 98.1 78 16 146/63 94 11/23/16 04:00 97.0 81 20 167/74 96 11/23/16 00:00 97.1 86 20 172/72 96 11/22/16 20:00 97.2 84 19 140/73 96 11/22/16 19:00 60 11/22/16 18:23 88 157/72 11/22/16 16:22 97.3 76 18 175/83 96 CBC/BMP: 11/23/16 0915 11/23/16 0915 Lab Results Laboratory Tests Test 11/23/16 09:15 White Blood Count 6.0 TH/MM3 Red Blood Count 3.05 MIL/MM3 Hemoglobin 9.9 GM/DL Hematocrit 28.4 % Mean Corpuscular Volume 93.3 FL Mean Corpuscular Hemoglobin 32.4 PG Mean Corpuscular Hemoglobin 34.7 % Concent Red Cell Distribution Width 13.4 % Platelet Count 188 TH/MM3 Mean Platelet Volume 8.6 FL Sodium Level 143 MEQ/L Potassium Level 3.1 MEQ/L Chloride Level 110 MEQ/L Carbon Dioxide Level 22.6 MEQ/L Anion Gap 10 MEQ/L Blood Urea Nitrogen 25 MG/DL Creatinine 2.18 MG/DL Estimat Glomerular Filtration 22 ML/MIN Rate Random Glucose 93 MG/DL Calcium Level 8.5 MG/DL Physical Exam General General Appearance: Well Developed, Well Nourished, No Acute Distress, Comfortable Eyes Eye Exam: Sclera White Neck Neck Exam: Trachea Midline Pulmonary Resp Exam: Clear Bilaterally, Breath Sounds Equal, No Distress Cardiology CV Exam: Regular, Normal Sinus Rhythm Gastrointestinal/Abdomen GI Exam: Soft, Non-Tender Integumentary Skin Exam: Clear, Warm, Intact Extremeties Extremities Exam: No Edema Neurologic Neuro Exam: Alert, Awake, Oriented Psychiatric Psych Exam: Appropriate Responses Assessment/Plan Assessment/Plan Physical Exam Physical Exam GENERAL: This is a well-nourished, well-developed patient, in no apparent distress. SKIN: No rashes, ecchymoses or lesions. Cool and dry. HEAD: Atraumatic. Normocephalic. No temporal or scalp tenderness. EYES: Pupils equal round and reactive. Extraocular motions intact. No scleral icterus. No injection or drainage. ENT: Airway patent. NECK: Trachea midline. No JVD or lymphadenopathy. Supple, nontender, no meningeal signs. CARDIOVASCULAR: Regular rate and rhythm without murmurs, gallops, or rubs. RESPIRATORY: Clear to auscultation. Breath sounds equal bilaterally. No wheezes , rales, or rhonchi. GASTROINTESTINAL: Abdomen soft, non-tender, nondistended. No hepato-splenomegaly , or palpable masses. No guarding. MUSCULOSKELETAL: Extremities without clubbing, cyanosis, or edema. No joint tenderness, effusion, or edema noted. No calf tenderness. Negative Homans sign bilaterally. NEUROLOGICAL: Awake and alert. Cranial nerves II through XII intact. Motor and sensory grossly within normal limits. Five out of 5 muscle strength in all muscle groups. Normal speech. Plan A/P Assessment and Plan (1) Hypercalcemia (2) Acute kidney injury (3) Hypokalemia (4) SONIA (acute kidney injury) (5) Hypertension (6) History of primary hyperparathyroidism (7) Acute kidney injury superimposed on chronic kidney disease (8) Anemia (9) Constipation Plan 81-year-old elderly female with history of primary hyperparathyroidism, hypertension. Recently found with renal insufficiency. Presented to emergency room with abnormal lab work. Endorses history of feeling fatigued, tired with poor appetite. Acute on chronic kidney disease, improving Nephrology input appreciated - Creatinine improving 2.18 today, cleared by nephrology for discharge Avoid nephrotoxic agents, MALU inhibitor's and diuretics. -Hold indapamide. Hypercalcemia, improved Hold thiazide diuretic -Nephrology following, -off of calcitonin outpatient follow up with nephrology and Endocrinology -hold calcium supplementation and diuretics -reduce calcitriol to 0.25 mcg po daily, until follow up with Dr Law -repeat BMP in 4 days Hypertension, blood pressure elevated Hold diltiazem Continue with amlodipine 5 mg by mouth daily Add clonidine 0.1 mg by mouth every 6 when necessary for systolic greater than 160, diastolic greater than 90. History of primary hyperparathyroidism Nephrology following, patient follows up with endocrinology as outpatient Hypokalemia Potassium has been replaced Constipation, possibly secondary to hypercalcemia, better MiraLAX daily Milk of magnesia when necessary Anemia, likely secondary to chronic kidney disease Home medications reviewed, initiated as indicated SCDs for DVT prophylaxis ok to d/c home outpatient follow up with Dr Law, Dr Walsh Plan of care has been discussed with the patient and registered nurse. Wendy Thompson MD November 23, 2016 12:56
--- NOTE | 2016-11-29 17:52 | HHI.DS ---
Discharge Summary Admission Date November 20, 2016 at 16:11 Discharge Date: November 23, 2016 Admitting Diagnosis SONIA, hypercalcemia (1) Hypercalcemia (2) Acute kidney injury (3) Hypokalemia (4) SONIA (acute kidney injury) (5) Hypertension (6) History of primary hyperparathyroidism (7) Acute kidney injury superimposed on chronic kidney disease (8) Anemia (9) Constipation Imaging Last Impressions Renal Ultrasound 11/21/16 0000 Signed Impressions: Service Date/Time: Monday, November 21, 2016 12:56 - CONCLUSION: Negative renal ultrasound examination. Left renal cysts are seen. Kalpesh Miramontes MD Hospital Course This an 81-year-old elderly female with past medical history hyperparathyroidism , hypertension. Patient stated that she had been feeling pretty tired and fatigued with poor appetite over last couple of weeks, she went to see her primary care physician who did some lab work and noted she had kidney insufficiency. She was referred to see Dr. Walsh. Stated that he went to see Dr. Walsh this past week and had laboratory workup. Patient was called today and told to come to the emergency room due to abnormal lab work. Patient was evaluated in emergency room, laboratory workup was completed. BUN 48, creatinine 2.55. Calcium 12.7, protein corrected calcium 12.6. Sodium 134, potassium 3.3. Patient has history of primary hyperparathyroidism status post single gland resection back. She follows with Dr. Law. Patient does take calcium supplements. Patient denied any chest week, no shortness of breath, no palpitations. Indicates she has been constipated, has not had a bowel movement in 2 days. She felt a little bit unsteady on her feet. Patient was evaluated by nephrology and recommendation was to admit to medical services. She was started on normal saline at 50 an hour as well as calcitonin 200 units IM every 12 hours. Her blood pressure was noted elevated, she had been started on Norvasc. Patient was admitted for further evaluation and treatment for: (1) Hypercalcemia (2) Acute kidney injury (3) Hypokalemia (4) SONIA (acute kidney injury) (5) Hypertension (6) History of primary hyperparathyroidism (7) Acute kidney injury superimposed on chronic kidney disease (8) Anemia (9) Constipation During the course of the hospitalization, the following took place: 81-year-old elderly female with history of primary hyperparathyroidism, hypertension. Recently found with renal insufficiency. Presented to emergency room with abnormal lab work. Endorses history of feeling fatigued, tired with poor appetite. Acute on chronic kidney disease, improved Nephrology input appreciated - Creatinine improving 2.18 at discharge. Avoid nephrotoxic agents, MALU inhibitor's and diuretics. -Held indapamide. Hypercalcemia, improved Held thiazide diuretic -Nephrology following, -off of calcitonin outpatient follow up with nephrology and Endocrinology -held calcium supplementation and diuretics -was instructed to reduce calcitriol to 0.25 mcg po daily, until follow up with Dr Law -repeat BMP in 4 days Hypertension, blood pressure elevated in initially. Held diltiazem Continued with amlodipine 5 mg by mouth daily Added clonidine 0.1 mg by mouth every 6 when necessary for systolic greater than 160, diastolic greater than 90. -BP improved. History of primary hyperparathyroidism Nephrology following, patient follows up with endocrinology as outpatient Hypokalemia-resolved Potassium was replaced Constipation, possibly secondary to hypercalcemia, better MiraLAX daily Milk of magnesia when necessary Anemia, likely secondary to chronic kidney disease -HH stable Home medications reviewed, initiated as indicated SCDs for DVT prophylaxis pt. stabilized, renal function and calcium improved cleared for dc Discharged home in stable condition. outpatient follow up with Dr Law, Dr Walsh Plan of care was discussed with the patient and registered nurse. Pt Condition on Discharge: Stable Discharge Disposition: Discharge Home Discharge Instructions DIET: Follow Instructions for: Heart Healthy Diet, Renal Failure Diet Activities you can perform: Regular-No Restrictions Follow up Referrals: Endocrinology - 1 Week with Ani Nephrology - 1 Week with Sarah Walsh New Medications: Calcitriol (Calcitriol) 0.25 Mcg Cap 0.25 MCG PO DAILY Calcium Supplement #30 Ref 0 CAP Continued Medications: Allopurinol (Allopurinol) 100 Mg Tab 100 MG PO BID Gout #30 Ref 0 TAB Alprazolam (Alprazolam) 0.25 Mg Tab 0.25 MG PO HS PRN ANXIETY Ref [address] (Aspir-Low) 81 Mg Tabdr 81 MG PO DAILY Cholecalciferol (Vitamin D) 400 Unit Cap 400 MG PO DAILY Diltiazem ER 24 HR (Cartia Xt) 240 Mg Caper 240 MG PO HS #30 Ref 0 CAP Discontinued Medications: Calcitriol (Calcitriol) 0.5 Mcg Cap 0.5 MCG PO DAILY Calcium Supplement #30 Ref 0 CAP Calcium (Calcium) 500 Mg Tab 500 MG PO BID TAB Furosemide (Lasix) 20 Mg Tab 20 MG PO DAILY #30 Ref 0 TAB Indapamide (Indapamide) 1.25 Mg Tab 1.25 MG PO DAILY Magnesium Oxide (Magnesium Oxide) 400 Mg Tab 400 MG PO DAILY Nutritional Supplement Ref 0 TAB Mary Lou Marcum [facility] November 29, 2016 17:52
== END 2016-11-23 14:15 | disposition home or self-care (01) | DRG 684 ==
LOC: NEPC 14:46 → NEDA 16:11 → HOCB 18:36
PROVIDERS: ADMIT Specialist; ATTEND Specialist
DX: N17.9 Acute kidney failure, unspecified (principal); D63.1 Anemia in chronic kidney disease; E55.9 Vitamin D deficiency, unspecified; E21.0 Primary hyperparathyroidism; E87.6 Hypokalemia; I12.9 Hypertensive chronic kidney disease with stage 1 through stage 4 chronic kidney disease, or unspecified chronic kidney disease; N18.3 Chronic kidney disease, stage 3 (moderate); K59.00 Constipation, unspecified; M19.90 Unspecified osteoarthritis, unspecified site; M10.9 Gout, unspecified; Z79.82 Long term (current) use of aspirin
CPT/HCPCS: 36415; 76775; 80048; 80053; 80069; 81001; 82306; 82397; 82570; 82652; 82784; 83735; 83883; 83930; 83935; 83970; 84155; 84156; 84165; 85025; 85027; 86021; 86038; 86160; 86162; 86334; 86335; 93005; J0630; J2405; J7030

== ENCOUNTER → 2016-11-27 | Outpatient (CLI) | payer MEDICARE, BC ==
[~2016-11-27] MED LIST changes: +CALC0.25 PO; -CALC0.5C6 PO; -CALC500T42 PO; -FURO1TAB62 PO; -INDA1.25 PO; -MAGN400T2 PO
[2016-11-27 12:30] LABS: BICARBONATE 23.2 MEQ/L (21.0-32.0); POTASSIUM 3.3 MEQ/L (3.5-5.1)
== END ==
LOC: PLAB 08:24
PROVIDERS: ATTEND Family Medicine
DX: N17.9 Acute kidney failure, unspecified (principal); N18.3 Chronic kidney disease, stage 3 (moderate)
CPT/HCPCS: 36415; 80069

== ENCOUNTER → 2017-01-14 | Outpatient (CLI) | payer MEDICARE, BC | LOC: PLAB 09:24 | DX: E83.51 Hypocalcemia (principal) | CPT/HCPCS: 82306; 82310 ==

== ENCOUNTER → 2017-02-25 | Outpatient (CLI) | payer MEDICARE, BC ==
[2017-02-25 12:53] LABS: BACTERIA, URINE OCC /hpf; BLOOD, URINE NEG (NEG); GLUCOSE,URINE NEG (NEG); GRANULAR CAST, URINE 2 /lpf; HYALINE CAST, URINE 2 /lpf (RARE); KETONE, URINE NEG (NEG); MUCUS URINE FEW /lpf (OCC); NITRITE,URINE NEG (NEG); PH, URINE 5.5 (5.0-8.5); SQUAMOUS EPITHELIAL CELL URINE 3 /hpf (0-5); TRANSITIONAL EPI CELLS, URINE 1 /hpf; URINE COLOR YELLOW (YELLW/STRAW)
[2017-02-25 13:00] LABS: COMMENT (UR) CULTURE INDICATED; CULTURE IF INDICATED CULTURE INDICATED
[2017-02-25 13:08] LABS: AUTOMATED NEUTROPHIL # 5.9 TH/MM3 (1.8-7.7); BASOPHIL % 0.4 % (0.0-2.0); EOSINOPHIL # 0.2 TH/MM3 (0-0.4); EOSINOPHIL % 2.4 % (0.0-4.0); HEMATOCRIT 35.8 % (35.0-46.0); LYMPH % 19.5 % (9.0-44.0); LYMPHOCYTE # 1.6 TH/MM3 (1.0-4.8); MEAN CELL VOLUME 94.2 FL (80.0-100.0); MEAN CORPUSCULAR HEMOGLOBIN 32.5 PG (27.0-34.0); MEAN CORPUSCULAR HGB CONC 34.5 % (32.0-36.0); MONO % 6.1 % (0.0-8.0); NEUT % 71.6 % (16.0-70.0); PLATELET COUNT 254 TH/MM3 (150-450); WHITE BLOOD COUNT 8.2 TH/MM3 (4.0-11.0)
[2017-02-25 13:15] LABS: BICARBONATE 28.2 MEQ/L (21.0-32.0); HEMO FLAGS AUTO DIFF; POTASSIUM 4.1 MEQ/L (3.5-5.1)
[2017-02-25 14:27] LABS: PLATELET ESTIMATE SMEAR NORMAL (NORMAL); PLATELET MORPHOLOGY NORMAL (NORMAL); SCAN/DIFF AUTO DIFF CONFIRMED
== END ==
LOC: PLAB 10:17
PROVIDERS: ATTEND Internal Medicine Nephrology
DX: N18.4 Chronic kidney disease, stage 4 (severe) (principal); E21.3 Hyperparathyroidism, unspecified; E55.9 Vitamin D deficiency, unspecified; R82.99 Other abnormal findings in urine
CPT/HCPCS: 36415; 80069; 81001; 82306; 82570; 83970; 84156; 85025; 87086

== ENCOUNTER → 2017-04-26 | Outpatient (CLI) | payer MEDICARE, BC | LOC: PLAB 08:31 | DX: E89.2 Postprocedural hypoparathyroidism (principal); E83.51 Hypocalcemia | CPT/HCPCS: 36415; 82306; 82310; 83970 ==

== ENCOUNTER → 2017-08-26 | Outpatient (CLI) | payer MEDICARE, BC ==
[2017-08-26 13:37] LABS: AUTOMATED NEUTROPHIL # 5.6 TH/MM3 (1.8-7.7); BASOPHIL % 0.6 % (0.0-2.0); EOSINOPHIL # 0.2 TH/MM3 (0-0.4); EOSINOPHIL % 2.1 % (0.0-4.0); HEMATOCRIT 38.1 % (35.0-46.0); HEMOGLOBIN 13.1 GM/DL (11.6-15.3); LYMPH % 19.4 % (9.0-44.0); LYMPHOCYTE # 1.5 TH/MM3 (1.0-4.8); MEAN CELL VOLUME 93.3 FL (80.0-100.0); MEAN CORPUSCULAR HEMOGLOBIN 32.2 PG (27.0-34.0); MEAN CORPUSCULAR HGB CONC 34.5 % (32.0-36.0); MEAN PLATELET VOLUME 8.4 FL (7.0-11.0); MONO % 7.3 % (0.0-8.0); MONOCYTE # 0.6 TH/MM3 (0-0.9); NEUT % 70.6 % (16.0-70.0); PLATELET COUNT 259 TH/MM3 (150-450); RED BLOOD COUNT 4.08 MIL/MM3 (4.00-5.30); RED CELL DISTRIBUTION WIDTH 13.8 % (11.6-17.2); WHITE BLOOD COUNT 7.9 TH/MM3 (4.0-11.0)
[2017-08-26 13:47] LABS: ALBUMIN 3.9 GM/DL (3.4-5.0); CALCIUM 7.7 MG/DL (8.5-10.1); CREATININE 1.27 MG/DL (0.50-1.00); PHOSPHORUS 5.4 MG/DL (2.5-4.9)
[2017-08-26 13:52] LABS: BACTERIA, URINE RARE /hpf; BILIRUBIN, URINE NEG (NEG); BLOOD, URINE NEG (NEG); GLUCOSE,URINE NEG (NEG); KETONE, URINE NEG (NEG); MUCUS URINE FEW /lpf (OCC); NITRITE,URINE NEG (NEG); PH, URINE 6.5 (5.0-8.5); SQUAMOUS EPITHELIAL CELL URINE 4 /hpf (0-5); TRANSITIONAL EPI CELLS, URINE 1 /hpf; URINE COLOR YELLOW (YELLW/STRAW); URINE LEUKOCYTE ESTERASE LARGE (NEG)
== END ==
LOC: PLAB 10:07
PROVIDERS: ATTEND Internal Medicine Nephrology
DX: E20.9 Hypoparathyroidism, unspecified (principal); I12.9 Hypertensive chronic kidney disease with stage 1 through stage 4 chronic kidney disease, or unspecified chronic kidney disease; N18.3 Chronic kidney disease, stage 3 (moderate)
CPT/HCPCS: 36415; 80069; 81001; 82570; 84156; 85025

== ENCOUNTER → 2017-10-13 | Outpatient (CLI) | payer MEDICARE, BC ==
[2017-10-13 10:21] LABS: ALBUMIN 3.7 GM/DL (3.4-5.0); CALCIUM 8.8 MG/DL (8.5-10.1)
[2017-10-13 10:24] LABS: CREATININE 1.08 MG/DL (0.50-1.00); PHOSPHORUS 4.1 MG/DL (2.5-4.9)
== END ==
LOC: PLAB 07:18
PROVIDERS: ATTEND Internal Medicine Nephrology
DX: N18.3 Chronic kidney disease, stage 3 (moderate) (principal)
CPT/HCPCS: 36415; 80069

== ENCOUNTER → 2017-11-08 | Outpatient (CLI) | payer MEDICARE, BC ==
[2017-11-08 14:04] LABS: ALBUMIN 3.7 GM/DL (3.4-5.0); ANION GAP 10 MEQ/L (5-15); AST (GOT) 17 U/L (15-37); BICARBONATE 27.6 MEQ/L (21.0-32.0); BLOOD UREA NITROGEN 20 MG/DL (7-18); CALCIUM 8.2 MG/DL (8.5-10.1); CHLORIDE 105 MEQ/L (98-107); CHOLESTEROL 211 MG/DL (120-200); CREATININE 1.33 MG/DL (0.50-1.00); GLOMERULAR FILTRATION RATE 38 ML/MIN (>89); GLUCOSE,FASTING 119 MG/DL (74-99); POTASSIUM 4.4 MEQ/L (3.5-5.1); SODIUM (NA) 143 MEQ/L (136-145)
[2017-11-08 14:08] LABS: PARATHYROID HORMONE INTACT LESS THAN 2.5 PG/ML (12.4-76.8)
[2017-11-08 14:17] LABS: ALKALINE PHOSPHATASE 123 U/L (45-117); ALT (GPT) 24 U/L (10-53); CHOLESTEROL/ HDL RATIO 6.13 RATIO; HDL CHOLESTEROL 34.4 MG/DL (40.0-60.0); LDL CHOLESTEROL 102 MG/DL (0-99); TOTAL BILIRUBIN ADULT 0.4 MG/DL (0.2-1.0); TRIGLYCERIDES 371 MG/DL (42-150); URIC ACID 5.3 MG/DL (2.6-6.0)
[2017-11-08 21:47] LABS: HEMOGLOBIN A1C 5.7 % (4.3-6.0); HEMOGLOBIN A1a 1.3 %; HEMOGLOBIN A1b 1.8 %; HEMOGLOBIN Ao 84.9 %; HEMOGLOBIN LA1C 2.1 %; HEMOGLOBIN P3 3.8 %
== END ==
LOC: PLAB 11:24
DX: E78.5 Hyperlipidemia, unspecified (principal); E03.9 Hypothyroidism, unspecified; E21.2 Other hyperparathyroidism; I12.9 Hypertensive chronic kidney disease with stage 1 through stage 4 chronic kidney disease, or unspecified chronic kidney disease; E11.22 Type 2 diabetes mellitus with diabetic chronic kidney disease; N18.3 Chronic kidney disease, stage 3 (moderate); E55.9 Vitamin D deficiency, unspecified; E79.0 Hyperuricemia without signs of inflammatory arthritis and tophaceous disease
CPT/HCPCS: 36415; 80053; 80061; 82306; 83036; 83970; 84443; 84550

== ENCOUNTER → 2017-11-30 | Outpatient (CLI) | payer MEDICARE, BC ==
[2017-11-30 10:21] LABS: AUTOMATED NEUTROPHIL # 5.6 TH/MM3 (1.8-7.7); BASOPHIL % 0.6 % (0.0-2.0); EOSINOPHIL # 0.1 TH/MM3 (0-0.4); EOSINOPHIL % 1.9 % (0.0-4.0); HEMATOCRIT 35.6 % (35.0-46.0); HEMOGLOBIN 12.3 GM/DL (11.6-15.3); LYMPH % 19.4 % (9.0-44.0); LYMPHOCYTE # 1.5 TH/MM3 (1.0-4.8); MEAN CELL VOLUME 93.1 FL (80.0-100.0); MEAN CORPUSCULAR HEMOGLOBIN 32.2 PG (27.0-34.0); MEAN CORPUSCULAR HGB CONC 34.6 % (32.0-36.0); MEAN PLATELET VOLUME 8.3 FL (7.0-11.0); MONOCYTE # 0.5 TH/MM3 (0-0.9); NEUT % 72.1 % (16.0-70.0); PLATELET COUNT 257 TH/MM3 (150-450); RED BLOOD COUNT 3.83 MIL/MM3 (4.00-5.30); RED CELL DISTRIBUTION WIDTH 14.1 % (11.6-17.2); WHITE BLOOD COUNT 7.8 TH/MM3 (4.0-11.0)
[2017-11-30 10:31] LABS: BILIRUBIN, URINE NEG (NEG); BLOOD, URINE NEG (NEG); GLUCOSE,URINE NEG (NEG); KETONE, URINE NEG (NEG); MUCUS URINE FEW /lpf (OCC); NITRITE,URINE NEG (NEG); PH, URINE 6.5 (5.0-8.5); SQUAMOUS EPITHELIAL CELL URINE 5 /hpf (0-5); TRANSITIONAL EPI CELLS, URINE 2 /hpf; URINE COLOR YELLOW (YELLW/STRAW); URINE LEUKOCYTE ESTERASE LARGE (NEG); WHITE BLOOD CELL CLUMPS RARE
[2017-11-30 10:41] LABS: ALBUMIN 3.5 GM/DL (3.4-5.0); BICARBONATE 27.3 MEQ/L (21.0-32.0); CALCIUM 8.3 MG/DL (8.5-10.1); CREATININE 1.16 MG/DL (0.50-1.00)
== END ==
LOC: PLAB 07:31
PROVIDERS: ATTEND Physician Assistant
DX: E55.9 Vitamin D deficiency, unspecified (principal); N18.3 Chronic kidney disease, stage 3 (moderate); R82.90 Unspecified abnormal findings in urine
CPT/HCPCS: 36415; 80069; 81001; 82306; 82570; 83970; 84156; 85025; 87086